=== PATIENT | female | born 1940 | race Caucasian/White ===

== ENCOUNTER 2018-02-28 08:43 | Emergency (ER) | payer MEDICARE, MEDICAID ==
[~2018-02-28] VITALS: Ht 152.4 cm; Wt 128.0 kg
[~2018-02-28 08:43] MED LIST: ALBU18HF2 INH; BUDE10.2 INH; CARV12.5 PO; CEPH500C5 PO; CHOL2000 PO; DOCU-28 PO; FERR325T32 PO; FURO40TA4 PO; GABA-532 PO; HYDR-565 PO; INSU100V5 IJ; LACT1CAP26 PO; LANTUS SUBCUT; LEVO500T2 PO; LOSA1TAB9 PO; NITR0.4T48 SL; PANT-47 PO; POTA8TAB8 PO
[2018-02-28 09:40] LABS: BASOPHILS % (AUTO) 0.1 % (0-1); EOSINOPHILS # (AUTO) 0.4 X10'3 (0-0.9); EOSINOPHILS % (AUTO) 3.8 % (0-6); HEMATOCRIT 30.4 % (35.0-45.0); LYMPHOCYTES # (AUTO) 1.2 X10'3 (1.1-4.8); LYMPHOCYTES % (AUTO) 11.3 % (21-51); MEAN CORPUSCULAR HEMOGLOBIN 29.4 PG (27.0-31.0); MEAN CORPUSCULAR HGB CONC 32.8 % (33.0-36.5); MEAN CORPUSCULAR VOLUME 89.6 FL (78-98); MEAN PLATELET VOLUME 7.7 FL (7.4-10.4); MONOCYTES # (AUTO) 0.6 X10'3 (0-0.9); MONOCYTES % (AUTO) 5.4 % (2-12); NEUTROPHILS # (AUTO) 8.1 X10'3 (1.8-7.7); NEUTROPHILS % (AUTO) 79.4 % (42-75); PLATELET COUNT 147 X10'3 (140-440); RED BLOOD COUNT 3.39 X10'6 (4.20-5.60); RED CELL DISTRIBUTION WIDTH 14.7 % (11.5-14.5); WHITE BLOOD COUNT 10.2 X10'3 (4.5-11.0)
[2018-02-28 10:03] LABS: ALANINE AMINOTRANSFERASE 15 U/L (12-78); ALBUMIN/GLOBULIN RATIO 0.7 (1.1-1.5); ALKALINE PHOSPHATASE 76 IU/L (46-116); ANION GAP 4 (8-16); ASPARTATE AMINO TRANSFERASE 18 U/L (10-37); BILIRUBIN,TOTAL 0.5 MG/DL (0.1-1.0); BLOOD UREA NITROGEN 15 MG/DL (7-18); CALCIUM 9.2 MG/DL (8.5-10.1); CHLORIDE 101 MMOL/L (99-107); GLUCOSE 195 MG/DL (70-104); MAGNESIUM 2.1 MG/DL (1.5-2.4); SODIUM 140 MMOL/L (135-145); TOTAL CARBON DIOXIDE 35.1 MMOL/L (24-32); TOTAL PROTEIN 7.4 G/DL (6.4-8.2); eGFR 54 ML/MIN
[2018-02-28 10:04] LABS: POTASSIUM 4.7 MMOL/L (3.5-5.1)
[2018-02-28] MEDS ORDERED: HYDROcodone/acetaminophen 10/325mg tab PO ONE (12:50)
[2018-02-28 13:29] LABS: C DIFF ANTIGEN NEGATIVE (NEGATIVE); C DIFF SPECIMEN=DIARRHEA? ACCEPTABLE; C DIFFICILE TOXINS A&B NEGATIVE (Neg)
[2018-02-28 14:00] VITALS: BP 170/66
== END 2018-02-28 14:59 | disposition home or self-care (01) ==
LOC: ER 08:43
DX: R19.7 Diarrhea, unspecified (principal); I25.10 Atherosclerotic heart disease of native coronary artery without angina pectoris; I10 Essential (primary) hypertension; I25.2 Old myocardial infarction; E11.9 Type 2 diabetes mellitus without complications; Z90.49 Acquired absence of other specified parts of digestive tract; Z95.1 Presence of aortocoronary bypass graft; Z88.8 Allergy status to other drugs, medicaments and biological substances; Z79.2 Long term (current) use of antibiotics; Z79.4 Long term (current) use of insulin; Z79.899 Other long term (current) drug therapy
CPT/HCPCS: 36415; 80053; 83605; 83735; 84145; 85025; 87040; 87324; 87449; 93005; 99285; J7030

== ENCOUNTER 2018-09-30 19:53 | Emergency (ER) | payer MEDICARE, MEDICAID ==
[~2018-09-30] VITALS: Ht 165.1 cm; Wt 116.0 kg
[~2018-09-30 19:53] MED LIST changes: +HYDR-4353 PO; -HYDR-565 PO
[2018-09-30] MEDS ORDERED: ipratropium/albuterol 3ml nebule NEB ONE (20:05)
[2018-09-30] MEDS ORDERED: HYDROcodone/acetaminophen 10/325mg tab PO ONE (20:05)
[2018-09-30 21:03] VITALS: BP 120/60
--- NOTE | 2018-09-30 21:17 | NUR ---
RT AT BEDSIDE FOR EVAL AND SVN .
[2018-09-30 21:54] LABS: BASOPHILS # (AUTO) 0.1 X10'3 (0-0.2); BASOPHILS % (AUTO) 0.7 % (0-1); EOSINOPHILS # (AUTO) 0.5 X10'3 (0-0.9); EOSINOPHILS % (AUTO) 4.2 % (0-6); HEMATOCRIT 33.8 % (35.0-45.0); LYMPHOCYTES # (AUTO) 1.4 X10'3 (1.1-4.8); LYMPHOCYTES % (AUTO) 11.8 % (21-51); MEAN CORPUSCULAR HEMOGLOBIN 29.2 PG (27.0-31.0); MEAN CORPUSCULAR HGB CONC 32.4 g/dL (33.0-36.5); MEAN CORPUSCULAR VOLUME 89.9 FL (78-98); MEAN PLATELET VOLUME 7.1 FL (7.4-10.4); MONOCYTES # (AUTO) 0.6 X10'3 (0-0.9); NEUTROPHILS # (AUTO) 9.1 X10'3 (1.8-7.7); NEUTROPHILS % (AUTO) 78.3 % (42-75); PLATELET COUNT 166 X10'3 (140-440); RED BLOOD COUNT 3.76 X10'6 (4.20-5.60); RED CELL DISTRIBUTION WIDTH 15.5 % (11.5-14.5); WHITE BLOOD COUNT 11.6 X10'3 (4.5-11.0)
[2018-09-30 22:08] LABS: ALANINE AMINOTRANSFERASE 12 U/L (12-78); ALBUMIN 3.2 G/DL (3.4-5.0); ALBUMIN/GLOBULIN RATIO 0.8 (1.1-1.5); ALKALINE PHOSPHATASE 78 IU/L (46-116); ANION GAP 5 (8-16); ASPARTATE AMINO TRANSFERASE 13 U/L (10-37); BILIRUBIN,TOTAL 0.6 MG/DL (0.1-1.0); BLOOD UREA NITROGEN 16 MG/DL (7-18); BUN/CREATININE RATIO 16.2 (6.6-38.0); CALCIUM 9.2 MG/DL (8.5-10.1); CHLORIDE 101 MMOL/L (99-107); CREATININE 0.99 MG/DL (0.40-0.90); GLUCOSE 151 MG/DL (70-104); POTASSIUM 4.4 MMOL/L (3.5-5.1); SODIUM 141 MMOL/L (135-145); TOTAL CARBON DIOXIDE 35.1 MMOL/L (24-32); TOTAL PROTEIN 7.2 G/DL (6.4-8.2); eGFR 54 ML/MIN
--- NOTE | 2018-09-30 22:34 | NUR ---
patient assisted with 1 person mod assist to wc and then taken to br to void. pt requesting to stay in her wc.
[2018-09-30] MEDS ORDERED: furosemide 10 MG/1 ML 10ml inj IV ONE (22:35)
[2018-09-30] MEDS ORDERED: carVEDilol 3.125mg tablet PO SCH (23:00)
--- NOTE | 2018-09-30 23:39 | NUR ---
PT IS DC READY AND WITH BP OF 211/89. PT DID NOT WANT THE DOSE OF LASIX D/T NEED TO USE BATHROOM AND THE DIFFICULTY HERE IN ER TO GET ASSIST. Willam WYATT AWARE. PT WILL BE PLACED IN ER ROOM 2 FOR O2 NEEDS AND UNTIL SAFE TRANSPORT CAN BE ARRANGED TO HER HOME AND SHE CAN HAVE ELECTRICITY OR A MEANS TO GET HER CONTINUOUS O2.
[2018-10-01] MEDS ORDERED: HYDROcodone/acetaminophen 10/325mg tab PO ONE (03:40)
[2018-10-01] MEDS ORDERED: carVEDilol 3.125mg tablet PO SCH (08:00)
== END 2018-09-30 23:39 | disposition home or self-care (01) ==
LOC: ER 19:54
DX: J44.9 Chronic obstructive pulmonary disease, unspecified (principal); I50.9 Heart failure, unspecified; G89.29 Other chronic pain; I11.0 Hypertensive heart disease with heart failure; I25.119 Atherosclerotic heart disease of native coronary artery with unspecified angina pectoris; I25.2 Old myocardial infarction; M19.90 Unspecified osteoarthritis, unspecified site; E11.9 Type 2 diabetes mellitus without complications; Z86.718 Personal history of other venous thrombosis and embolism; Z90.49 Acquired absence of other specified parts of digestive tract; Z95.1 Presence of aortocoronary bypass graft; Z98.62 Peripheral vascular angioplasty status; Z86.73 Personal history of transient ischemic attack (TIA), and cerebral infarction without residual deficits; Z88.1 Allergy status to other antibiotic agents; Z91.041 Radiographic dye allergy status; Z87.11 Personal history of peptic ulcer disease; Z88.8 Allergy status to other drugs, medicaments and biological substances; Z79.4 Long term (current) use of insulin; Z79.899 Other long term (current) drug therapy
CPT/HCPCS: 36415; 71045; 80053; 83880; 84484; 85025; 93005; 94640; 94760; 99284; J1940

== ENCOUNTER 2019-03-24 11:39 | Inpatient (IN) | payer MEDICARE, MEDICAID ==
[~2019-03-24] VITALS: Ht 165.1 cm; Wt 127.3 kg
[~2019-03-24 11:39] MED LIST changes: -CEPH500C5 PO
[2019-03-24] MEDS ORDERED: normal saline 1000ML IV soln IV ONE (12:35)
[2019-03-24] MEDS ORDERED: CefTRIAXone 2gm/D5W 50ml 50 ML IV ONE (12:55)
[2019-03-24 13:09] LABS: BASOPHILS # (AUTO) 0.1 X10'3 (0-0.2); BASOPHILS % (AUTO) 0.6 % (0-1); EOSINOPHILS # (AUTO) 1.4 X10'3 (0-0.9); EOSINOPHILS % (AUTO) 10.5 % (0-6); HEMATOCRIT 28.7 % (35.0-45.0); HEMOGLOBIN 9.1 g/dl (12.0-16.0); LYMPHOCYTES # (AUTO) 1.2 X10'3 (1.1-4.8); LYMPHOCYTES % (AUTO) 9.6 % (21-51); MEAN CORPUSCULAR HEMOGLOBIN 28.5 PG (27.0-31.0); MEAN CORPUSCULAR HGB CONC 31.8 g/dL (33.0-36.5); MEAN CORPUSCULAR VOLUME 89.6 FL (78-98); MEAN PLATELET VOLUME 7.8 FL (7.4-10.4); MONOCYTES % (AUTO) 7.7 % (2-12); NEUTROPHILS # (AUTO) 9.3 X10'3 (1.8-7.7); NEUTROPHILS % (AUTO) 71.6 % (42-75); PLATELET COUNT 179 X10'3 (140-440); RED BLOOD COUNT 3.21 X10'6 (4.20-5.60); RED CELL DISTRIBUTION WIDTH 14.7 % (11.5-14.5)
[2019-03-24 13:23] LABS: ALANINE AMINOTRANSFERASE 11 U/L (12-78); ALBUMIN 2.8 G/DL (3.4-5.0); ALBUMIN/GLOBULIN RATIO 0.6 (1.1-1.5); ALKALINE PHOSPHATASE 78 IU/L (46-116); ANION GAP 3 (8-16); ASPARTATE AMINO TRANSFERASE 5 U/L (10-37); BILIRUBIN,TOTAL 0.2 MG/DL (0.1-1.0); BLOOD UREA NITROGEN 17 MG/DL (7-18); BUN/CREATININE RATIO 13.1 (6.6-38.0); CALCIUM 8.7 MG/DL (8.5-10.1); CHLORIDE 104 MMOL/L (99-107); GLUCOSE 115 MG/DL (70-104); POTASSIUM 5.7 MMOL/L (3.5-5.1); SODIUM 139 MMOL/L (135-145); TOTAL CARBON DIOXIDE 32.4 MMOL/L (24-32); TOTAL PROTEIN 7.2 G/DL (6.4-8.2); eGFR 40 ML/MIN
--- NOTE | 2019-03-24 13:30 | NUR ---
pt is difficult IV start, attempted twice, another RN to try, pt is resting quietly on gurney, resp even and unlabored, family at bedside
--- NOTE | 2019-03-24 14:01 | NUR ---
another RN attempted IV x2, no success, PICC line
[2019-03-24 14:02] LABS: PARTIAL THROMBOPLASTIN TIME 35 SECONDS (22-32)
[2019-03-24] MEDS ORDERED: insulin regular, human 10 units/0.1 ml syringe IV ONE (14:10)
[2019-03-24] MEDS ORDERED: dextrose 50%-water 50ml dispensing syringe IV ONE (14:10)
--- NOTE | 2019-03-24 14:30 | NUR ---
line placed by PICC nurse to rt bicep ok to use per Dr Duke
--- NOTE | 2019-03-24 14:42 | NUR ---
hospitalist at bedside
[2019-03-24] MEDS ORDERED: ondansetron/PF 4mg/2ml inj IV PRN (14:45)
[2019-03-24] MEDS ORDERED: potassium Cl 20 mEq SR tablet PO PRN ×2 (14:45)
[2019-03-24] MEDS ORDERED: morphine 2 MG/ML inj. syringe IV PRN (14:45)
[2019-03-24] MEDS ORDERED: potassium CL 10mEq/100ml bag 100 ML IV PRN ×2 (14:45)
[2019-03-24] MEDS ORDERED: magnesium hydroxide 30ml (MOM) UD suspension PO PRN (14:45)
[2019-03-24] MEDS ORDERED: mag hydrox/Alum hydrox/simeth 30ml oral suspension PO PRN (14:45)
[2019-03-24] MEDS ORDERED: magnesium Cl slow-release 64mg tablet PO PRN (14:45)
[2019-03-24] MEDS ORDERED: HYDROcodone/acetaminophen 5mg/325mg tablet PO PRN (14:45)
[2019-03-24] MEDS ORDERED: diphenhydrAMINE 50 mg/ml inj IV PRN (14:45)
[2019-03-24] MEDS ORDERED: acetaminophen 325mg tablet PO PRN ×2 (14:45)
[2019-03-24] MEDS ORDERED: diphenhydrAMINE 25mg capsule PO PRN (14:45)
[2019-03-24] MEDS ORDERED: magnesium 2GM in 50ml NS 50 ML IV PRN (14:45)
[2019-03-24] MEDS ORDERED: metoclopramide 5 mg/ml inj IV PRN (14:45)
[2019-03-24] MEDS ORDERED: acetaminophen 650mg rectal suppository RC PRN (14:45)
[2019-03-24] MEDS ORDERED: magnesium 4gm in 100ml NS 100 ML IV PRN (14:45)
[2019-03-24] MEDS ORDERED: bisacodyl 10mg suppository rectal RC PRN (14:45)
[2019-03-24] MEDS ORDERED: FEXO-62 PO (14:58)
[2019-03-24] MEDS ORDERED: LOPE2CAP PO (14:58)
[2019-03-24] MEDS ORDERED: GLIM4TAB PO (14:58)
[2019-03-24] MEDS ORDERED: CELE-85 PO (14:58)
--- NOTE | 2019-03-24 15:00 | NUR ---
pictures taken of rt lower leg, pt continues to rest quietly on gurney
[2019-03-24] MEDS ORDERED: CHOL100046 PO (15:06)
[2019-03-24 15:34] LABS: HEMOGLOBIN A1C 6.7 % (4.5-6.2)
--- NOTE | 2019-03-24 15:49 | NUR ---
2nd liter NS infusing w/o, pt is resting quietly on gurney, resp even and unlabored, waiting for bed assignment
[2019-03-24] MEDS: cefepime 2g/NS 100ml ADVANTAGE 100 ML IV SCH ×2 (15:50→20:00)
--- NOTE | 2019-03-24 17:00 | NUR ---
PT IS SLEEPING, RESP EVEN AND UNLABORED
--- NOTE | 2019-03-24 18:00 | NUR ---
PT RESTING QUIETLY, GAVE HER A WARM BLANKET
[2019-03-24] MEDS: K and/or MAG REPLACEMENT MC SCH (18:15)
[2019-03-24] MEDS: normal saline 1000ml 1,000 ML IV SCH (18:36)
[2019-03-24] MEDS ORDERED: dextrose ORAL solution 15 GM/59 ML bottle PO PRN ×2 (19:25)
[2019-03-24] MEDS ORDERED: nitroGLYCERIN 0.4mg SUBLingual tab SL PRN (19:25)
[2019-03-24] MEDS ORDERED: MESSAGE TO PHARMACY PO ONE (19:25)
[2019-03-24] MEDS ORDERED: glucagon, human recombinant 1mg kit SUBCUT PRN (19:25)
[2019-03-24] MEDS ORDERED: docusate sod 100mg capsule PO PRN (19:25)
[2019-03-24] MEDS ORDERED: dextrose 50%-water 50ml dispensing syringe IV PRN ×2 (19:25)
[2019-03-24] MEDS ORDERED: non-formulary drug (Albuterol Sulfate (Ventolin Hfa) 2 PUFFS) INH PRN (19:25)
[2019-03-24] MEDS ORDERED: albuterol 2.5 MG/3 ML nebule NEB PRN (19:30)
--- NOTE | 2019-03-24 19:49 | NUR ---
PT UP TO BEDSIDE COMMODE WITH MIN ASSIST, UNABLE TO SEND SAMPLE IT WAS CONTAMINATED, PT IS EATING DINNER NOW, DERIAN WELL, NO N/V
[2019-03-24] MEDS ORDERED: non-formulary drug (Budesonide/Formoterol Fumarate (Symbicort 160-4.5 Mcg Inhaler) 1 PUFFS INH SCH (20:00)
[2019-03-24] MEDS: carVEDilol 12.5mg tablet PO SCH (20:09)
[2019-03-24] MEDS: ferrous sulfate 325mg tablet PO SCH (20:10)
[2019-03-24] MEDS: furosemide 40mg tablet PO SCH (20:10)
[2019-03-24] MEDS: pantoprazole 40mg Tablet.DR PO SCH (20:10)
[2019-03-24] MEDS: heparin, porcine 5000 units/ml vial SQ SCH (20:11)
[2019-03-24] MEDS: budesonide 0.5mg/2ml UD nebule IH SCH (20:48)
[2019-03-24] MEDS: insulin glargine (Lantus) pen - multi-dose SQ SCH (21:00)
[2019-03-24] MEDS ORDERED: temazepam 15mg capsule PO PRN (21:00)
--- NOTE | 2019-03-24 22:49 | NUR ---
PT IS SLEEPING, RESP EVEN AND UNLABORED,
[2019-03-24] MEDS ORDERED: sodium polystyrene sulfonate 15gm/60ml oral suspension PO ONE (23:15)
[2019-03-24] MEDS: amLODIPine 5mg tablet PO SCH (23:20)
--- NOTE | 2019-03-24 23:30 | NUR ---
PT UP TO BEDSIDE COMMODE WITH MIN ASSIST, DRESSED WOUND TO RT LOWER LEG WITH NONADHERENT, GUAZE AND GUAZE WRAP, PT DERIAN WELL
[2019-03-25 00:12] LABS: ALBUMIN 2.5 G/DL (3.4-5.0); ANION GAP 2 (8-16); BLOOD UREA NITROGEN 17 MG/DL (7-18); BUN/CREATININE RATIO 12.9 (6.6-38.0); CALCIUM 8.1 MG/DL (8.5-10.1); CHLORIDE 107 MMOL/L (99-107); CREATININE 1.32 MG/DL (0.40-0.90); GLUCOSE 128 MG/DL (70-104); POTASSIUM 5.9 MMOL/L (3.5-5.1); SODIUM 143 MMOL/L (135-145); TOTAL CARBON DIOXIDE 34.5 MMOL/L (24-32); eGFR 39 ML/MIN
[2019-03-25] MEDS: normal saline 1000ml 1,000 ML IV SCH ×3 (00:42→20:04)
[2019-03-25 05:44] LABS: CLARITY,URINE CLEAR (Clear); COLOR,URINE STRAW (Yellow); GLUCOSE, URINE NEGATIVE (Neg); KETONES,URINE NEGATIVE (Neg); LEUKOCYTE ESTERASE ,URINE NEGATIVE (Neg); NITRITES, URINE NEGATIVE (Neg); OCCULT BLOOD,URINE NEGATIVE (Neg); PH,URINE 5.5 (4.8-8.0); PROTEIN,URINE NEGATIVE (Neg); UROBILINOGEN,URINE 0.2 E.U/dL (0.2-1.0)
[2019-03-25 05:45] LABS: UA COLLECTION TYPE OTHER
[2019-03-25] MEDS: morphine 2 MG/ML inj. syringe IV PRN ×2 (06:14→16:20)
[2019-03-25 06:39] LABS: BASOPHILS # (AUTO) 0.1 X10'3 (0-0.2); BASOPHILS % (AUTO) 0.6 % (0-1); EOSINOPHILS % (AUTO) 9.8 % (0-6); HEMATOCRIT 28.1 % (35.0-45.0); LYMPHOCYTES # (AUTO) 0.9 X10'3 (1.1-4.8); LYMPHOCYTES % (AUTO) 8.6 % (21-51); MEAN CORPUSCULAR HGB CONC 32.1 g/dL (33.0-36.5); MEAN CORPUSCULAR VOLUME 90.2 FL (78-98); MEAN PLATELET VOLUME 7.7 FL (7.4-10.4); MONOCYTES # (AUTO) 0.8 X10'3 (0-0.9); MONOCYTES % (AUTO) 7.7 % (2-12); NEUTROPHILS # (AUTO) 7.4 X10'3 (1.8-7.7); NEUTROPHILS % (AUTO) 73.3 % (42-75); PLATELET COUNT 150 X10'3 (140-440); RED BLOOD COUNT 3.12 X10'6 (4.20-5.60); RED CELL DISTRIBUTION WIDTH 14.8 % (11.5-14.5); WHITE BLOOD COUNT 10.1 X10'3 (4.5-11.0)
[2019-03-25] MEDS: albuterol 2.5 MG/3 ML nebule NEB SCH ×4 (06:49→19:20)
[2019-03-25] MEDS: budesonide 0.5mg/2ml UD nebule IH SCH ×2 (06:49→19:20)
[2019-03-25 07:16] LABS: ALANINE AMINOTRANSFERASE 10 U/L (12-78); ALBUMIN 2.5 G/DL (3.4-5.0); ALBUMIN/GLOBULIN RATIO 0.7 (1.1-1.5); ALKALINE PHOSPHATASE 61 IU/L (46-116); ANION GAP 2 (8-16); ASPARTATE AMINO TRANSFERASE 9 U/L (10-37); BILIRUBIN,TOTAL 0.3 MG/DL (0.1-1.0); BLOOD UREA NITROGEN 15 MG/DL (7-18); CALCIUM 8.1 MG/DL (8.5-10.1); CHLORIDE 107 MMOL/L (99-107); CHOL/HDL RATIO 3.4 (0.00-4.99); CHOLESTEROL 118 MG/DL (0-200); CREATININE 1.25 MG/DL (0.40-0.90); GLUCOSE 129 MG/DL (70-104); HDL CHOLESTEROL 35 MG/DL (35-60); LDL CHOLESTEROL 70 MG/DL (50-100); MAGNESIUM 1.9 MG/DL (1.5-2.4); PHOSPHORUS 3.2 MG/DL (2.3-4.5); POTASSIUM 5.2 MMOL/L (3.5-5.1); SODIUM 143 MMOL/L (135-145); TOTAL PROTEIN 6.3 G/DL (6.4-8.2); TRIGLYCERIDES 99 MG/DL (20-135); eGFR 42 ML/MIN
[2019-03-25] MEDS: HYDROcodone/acetaminophen 10/325mg tab PO PRN ×2 (07:17→22:07)
--- NOTE | 2019-03-25 07:35 | NUR ---
Patient arrived to unit
[2019-03-25] MEDS ORDERED: LOSARTAN PO SCH (08:00)
[2019-03-25] MEDS ORDERED: vitamin D (cholecalciferol) 1,000 unit tablet PO SCH (08:00)
[2019-03-25] MEDS ORDERED: FEXOFENADINE HCL PO SCH (08:00)
[2019-03-25] MEDS: K and/or MAG REPLACEMENT MC SCH (08:00)
[2019-03-25] MEDS ORDERED: HYDROCHLOROTHIAZIDE PO SCH (08:00)
[2019-03-25] MEDS: pantoprazole 40mg Tablet.DR PO SCH ×2 (08:17→20:04)
[2019-03-25] MEDS: loratadine 10mg tablet PO SCH (08:17)
[2019-03-25] MEDS: amLODIPine 5mg tablet PO SCH (08:17)
[2019-03-25] MEDS: HYDROchlorothiazide 12.5mg capsule PO SCH (08:17)
[2019-03-25] MEDS: ferrous sulfate 325mg tablet PO SCH ×2 (08:17→20:04)
[2019-03-25] MEDS: gabapentin 300mg capsule PO SCH ×4 (08:17→23:24)
[2019-03-25] MEDS: carVEDilol 12.5mg tablet PO SCH ×2 (08:17→20:04)
[2019-03-25] MEDS: heparin, porcine 5000 units/ml vial SQ SCH ×2 (08:18→20:05)
[2019-03-25] MEDS: furosemide 40mg tablet PO SCH ×2 (08:18→20:04)
[2019-03-25] MEDS: losartan 50mg tablet PO SCH (08:19)
[2019-03-25] MEDS: cefepime 2g/NS 100ml ADVANTAGE 100 ML IV SCH ×2 (08:20→20:04)
[2019-03-25] MEDS: vitamin D (cholecalciferol) 1,000 unit tablet PO SCH (08:39)
--- NOTE | 2019-03-25 09:42 | NUR ---
DM consult: Patient's A1c is 6.7; No DM education warranted at this time. Will continue to follow. Addendum: 03/25/19 at [address] Amended: Links added.
[2019-03-25 11:00] VITALS: BP 152/47
--- NOTE | 2019-03-25 11:25 | NUR ---
COMPRESSION WRAP EDUCATION PROVIDED BY WOUND CARE 1. Patient instructed to elevate legs at least 30 minutes 3 times a day or 10 minutes every 4 hours. 2. Patient Instructed to check for the following signs: * Toes become purplish or blue in color. * Toes become cool to the touch, numb or tingly. * Dressing becomes loose, wrinkled or falls down. * If any pain or discomfort occurs under their dressing. * If any of these signs occur, use a pair of scissors and carefully cut off the dressing. "Call your wound care center or primary doctor immediately to make an appointment. 3. Patient instructed that the wrap needs to be kept dry. They may bath at a sink or shower with a plastic bag taped over the wrap. If they shower, be sure to have another person available for assistance or placing towels on the floor of the shower or tub to eliminate the slick surface can reduce the risk of falls. 4. If any of these occur while patient is still in the hospital, call the nurse immediately. Addendum: 03/25/19 at 1126 by Jean Carlos Sparks RN Amended: Links added.
[2019-03-25 18:00] VITALS: BP 140/63
[2019-03-25] MEDS: lactobacillus rhamnosus 10,000 MMU CELLS/CAPSULE PO SCH (20:04)
[2019-03-25] MEDS ORDERED: sodium polystyrene sulfonate 15gm/60ml oral suspension PO ONE (20:35)
[2019-03-25] MEDS: insulin glargine (Lantus) pen - multi-dose SQ SCH (21:00)
--- NOTE | 2019-03-25 22:29 | NUR ---
Patient in room EDD 346. I have received report from LNIH David and had the opportunity to ask questions and assume patient care. Addendum: 03/25/19 at 2229 by Carito Ray RN Amended: Links added.
[2019-03-26] VITALS (7 sets, daily range): BP systolic 131–232; BP diastolic 51–89
[2019-03-26 05:08] LABS: BASOPHILS % (AUTO) 0.4 % (0-1); EOSINOPHILS # (AUTO) 0.9 X10'3 (0-0.9); EOSINOPHILS % (AUTO) 9.1 % (0-6); HEMATOCRIT 28.1 % (35.0-45.0); LYMPHOCYTES # (AUTO) 0.9 X10'3 (1.1-4.8); LYMPHOCYTES % (AUTO) 9.3 % (21-51); MEAN CORPUSCULAR HEMOGLOBIN 28.9 PG (27.0-31.0); MEAN CORPUSCULAR HGB CONC 32.1 g/dL (33.0-36.5); MEAN CORPUSCULAR VOLUME 90.1 FL (78-98); MEAN PLATELET VOLUME 8.1 FL (7.4-10.4); MONOCYTES # (AUTO) 0.8 X10'3 (0-0.9); MONOCYTES % (AUTO) 7.9 % (2-12); NEUTROPHILS # (AUTO) 7.5 X10'3 (1.8-7.7); NEUTROPHILS % (AUTO) 73.3 % (42-75); PLATELET COUNT 127 X10'3 (140-440); RED BLOOD COUNT 3.11 X10'6 (4.20-5.60); RED CELL DISTRIBUTION WIDTH 14.7 % (11.5-14.5); WHITE BLOOD COUNT 10.2 X10'3 (4.5-11.0)
[2019-03-26 05:32] LABS: POTASSIUM 4.5 MMOL/L (3.5-5.1); SODIUM 142 MMOL/L (135-145)
[2019-03-26 05:50] LABS: ALANINE AMINOTRANSFERASE 9 U/L (12-78); ALBUMIN 2.3 G/DL (3.4-5.0); ALBUMIN/GLOBULIN RATIO 0.6 (1.1-1.5); ALKALINE PHOSPHATASE 59 IU/L (46-116); ANION GAP 5 (8-16); ASPARTATE AMINO TRANSFERASE 5 U/L (10-37); BILIRUBIN,TOTAL 0.4 MG/DL (0.1-1.0); BLOOD UREA NITROGEN 13 MG/DL (7-18); BUN/CREATININE RATIO 11.8 (6.6-38.0); CALCIUM 8.5 MG/DL (8.5-10.1); CHLORIDE 104 MMOL/L (99-107); GLUCOSE 155 MG/DL (70-104); MAGNESIUM 1.9 MG/DL (1.5-2.4); PHOSPHORUS 2.6 MG/DL (2.3-4.5); TOTAL PROTEIN 6.3 G/DL (6.4-8.2); eGFR 48 ML/MIN
--- NOTE | 2019-03-26 06:00 | NUR ---
Patient in room EDD 346. I have received report from LINH Arzate and had the opportunity to ask questions and assume patient care.
--- NOTE | 2019-03-26 06:29 | NUR ---
Problems reprioritized. Patient report given, questions answered & plan of care reviewed with LINH Winters. Addendum: 03/26/19 at 0630 by Carito Ray RN Amended: Links added.
--- NOTE | 2019-03-26 07:35 | NUR ---
Jewell, nurses aid came out and said that patient was saturating in the 60's and her HR was in the 130's. I went and looked at the patient and she was alert and looking at me. She was put on a non-rebreather mask and her saturations came up to 97%. She was complaining of chest pain so the aids were working on an EKG. She said that it was across her entire chest. She did not state that there was any pressure or that it was radiating down her arm. The patient was also short of breath. I went to notify chargemaster analyst Megan and we agreed that we should call a rapid response. ICU charge nurse Jennifer came and RT showed up as well. We got a set of vitals at 0745 and BP was 232/89 HR of 114, saturations were still good. Break nurse Jennifer went and took the EKG to an ER doctor to be read. Jennifer suggested nitro so I double checked the chart and she had a PRN dose. Sublingual nitro was given. Dr. Taylor was paged while the first EKG was being drawn. RT was getting ABG's and Jennifer suggested an add on troponin as well. Dr. Taylor called and we discussed everything that had happened. He ordered 2 more troponin's Q6h's, heparin drip if the troponin was positive, and possibly Bipap if the ABG's didn't look good. LINH Rodriguez and RT Latha waited for the ABG's to come back and her CO2 was high and so they suggested to put her back on the MC at 2L and take her off the non-rebreather and she should naturally blow off the CO2. The patient's saturations came up and LINH Rodriguez and Latha, RT told me to call them if I needed them. The patients vitals were re-checked at 0805, BP of 190/67 HR of 131. I then decided to give the patient her morning medications because she had a couple BP medications that would help her still elevated pressure. Will continue to monitor the patient.
[2019-03-26] MEDS: budesonide 0.5mg/2ml UD nebule IH SCH ×2 (07:47→20:28)
[2019-03-26] MEDS: albuterol 2.5 MG/3 ML nebule NEB SCH ×4 (07:47→20:27)
[2019-03-26 08:00] LABS: ABG BASE EXCESS 9.1 mmol/L (-2.0-3.0); ABG HCO3 37.6 mmol/L (22.0-26.0); ABG OXYGEN SATURATION 98.9 % (95-98); ABG PCO2 (T) 76.6 mmHg (35.0-45.0); ABG PH (T) 7.309 (7.350-7.450); ABG PO2 (T) 164.4 mmHg (83-108); ALLEN'S TEST Positive; FCOHb 0.5 % (0.5-1.5); FLOW 15 L/min; FMetHb 0.1 % (0.3-1.12); FO2Hb 98.3 % (94-100); TOTAL HEMOGLOBIN 10.8 G/dl (12.0-16.0)
[2019-03-26] MEDS: K and/or MAG REPLACEMENT MC SCH (08:00)
[2019-03-26 08:19] LABS: TROPONIN I < 0.04 NG/ML (0.0-0.05)
[2019-03-26] MEDS: losartan 50mg tablet PO SCH (08:26)
[2019-03-26] MEDS: carVEDilol 12.5mg tablet PO SCH ×2 (08:26→19:18)
[2019-03-26] MEDS: loratadine 10mg tablet PO SCH (08:26)
[2019-03-26] MEDS: cefepime inj 2 GM in dextrose 5%-water 50ml 50 ML IV SCH ×2 (08:26→19:57)
[2019-03-26] MEDS: HYDROchlorothiazide 12.5mg capsule PO SCH (08:27)
[2019-03-26] MEDS: lactobacillus rhamnosus 10,000 MMU CELLS/CAPSULE PO SCH ×2 (08:27→19:18)
[2019-03-26] MEDS: gabapentin 300mg capsule PO SCH ×3 (08:27→23:19)
[2019-03-26] MEDS: ferrous sulfate 325mg tablet PO SCH ×2 (08:27→19:18)
[2019-03-26] MEDS: amLODIPine 5mg tablet PO SCH (08:27)
[2019-03-26] MEDS: furosemide 40mg tablet PO SCH (08:27)
[2019-03-26] MEDS: vitamin D (cholecalciferol) 1,000 unit tablet PO SCH (08:28)
[2019-03-26] MEDS: pantoprazole 40mg Tablet.DR PO SCH ×2 (08:28→19:18)
[2019-03-26] MEDS: heparin, porcine 5000 units/ml vial SQ SCH ×2 (08:29→19:19)
[2019-03-26] MEDS ORDERED: diltiazem 30mg tablet PO ONE (09:40)
--- NOTE | 2019-03-26 12:00 | NUR ---
1200 blood sugar was not checked, patient already eating. Confusion between myself and the break nurse. Will check at 1700.
[2019-03-26] MEDS: HYDROcodone/acetaminophen 10/325mg tab PO PRN (14:13)
--- NOTE | 2019-03-26 18:00 | NUR ---
Problems reprioritized. Patient report given, questions answered & plan of care reviewed with LINH Hand.
--- NOTE | 2019-03-26 18:30 | NUR ---
Patient in room EDD 346. I have received report from Vianey MELTON and had the opportunity to ask questions and assume patient care.
[2019-03-26] MEDS: insulin Lispro (HumaLOG) vial - multi-dose SQ SCH (19:12)
[2019-03-26] MEDS: furosemide 40mg/4ml inj IV SCH (19:18)
[2019-03-26] MEDS: insulin glargine (Lantus) pen - multi-dose SQ SCH (21:06)
[2019-03-26] MEDS: ipratropium/albuterol 3ml nebule NEB SCH (23:22)
[2019-03-27] MEDS: HYDROcodone/acetaminophen 10/325mg tab PO PRN ×2 (02:18→22:45)
[2019-03-27] MEDS: ipratropium/albuterol 3ml nebule NEB SCH ×6 (03:15→23:23)
[2019-03-27 05:29] LABS: ALANINE AMINOTRANSFERASE 12 U/L (12-78); ALBUMIN 2.2 G/DL (3.4-5.0); ALBUMIN/GLOBULIN RATIO 0.6 (1.1-1.5); ALKALINE PHOSPHATASE 59 IU/L (46-116); ANION GAP 3 (8-16); ASPARTATE AMINO TRANSFERASE 4 U/L (10-37); BILIRUBIN,TOTAL 0.4 MG/DL (0.1-1.0); BLOOD UREA NITROGEN 14 MG/DL (7-18); CALCIUM 8.4 MG/DL (8.5-10.1); CHLORIDE 100 MMOL/L (99-107); GLUCOSE 154 MG/DL (70-104); MAGNESIUM 1.5 MG/DL (1.5-2.4); PHOSPHORUS 2.2 MG/DL (2.3-4.5); POTASSIUM 3.8 MMOL/L (3.5-5.1); SODIUM 142 MMOL/L (135-145); TOTAL CARBON DIOXIDE 38.9 MMOL/L (24-32); TOTAL PROTEIN 6.1 G/DL (6.4-8.2); eGFR 54 ML/MIN
[2019-03-27 07:00] VITALS: BP 136/52
--- NOTE | 2019-03-27 07:02 | NUR ---
Problems reprioritized. Patient report given, questions answered & plan of care reviewed with Awa MELTON.
[2019-03-27 07:14] LABS: BASOPHILS # (AUTO) 0.1 X10'3 (0-0.2); BASOPHILS % (AUTO) 0.5 % (0-1); EOSINOPHILS # (AUTO) 0.7 X10'3 (0-0.9); EOSINOPHILS % (AUTO) 6.9 % (0-6); HEMATOCRIT 26.3 % (35.0-45.0); HEMOGLOBIN 8.5 g/dl (12.0-16.0); LYMPHOCYTES # (AUTO) 0.9 X10'3 (1.1-4.8); LYMPHOCYTES % (AUTO) 8.5 % (21-51); MEAN CORPUSCULAR HGB CONC 32.3 g/dL (33.0-36.5); MEAN CORPUSCULAR VOLUME 89.6 FL (78-98); MEAN PLATELET VOLUME 7.6 FL (7.4-10.4); MONOCYTES # (AUTO) 1.1 X10'3 (0-0.9); MONOCYTES % (AUTO) 10.2 % (2-12); NEUTROPHILS % (AUTO) 73.9 % (42-75); PLATELET COUNT 143 X10'3 (140-440); RED BLOOD COUNT 2.93 X10'6 (4.20-5.60); RED CELL DISTRIBUTION WIDTH 15.1 % (11.5-14.5); WHITE BLOOD COUNT 10.8 X10'3 (4.5-11.0)
[2019-03-27] MEDS: loratadine 10mg tablet PO SCH (07:27)
[2019-03-27] MEDS: vitamin D (cholecalciferol) 1,000 unit tablet PO SCH (07:27)
[2019-03-27] MEDS: lactobacillus rhamnosus 10,000 MMU CELLS/CAPSULE PO SCH ×2 (07:27→20:16)
[2019-03-27] MEDS: gabapentin 300mg capsule PO SCH ×3 (07:27→23:31)
[2019-03-27] MEDS: pantoprazole 40mg Tablet.DR PO SCH ×2 (07:28→20:16)
[2019-03-27] MEDS: carVEDilol 12.5mg tablet PO SCH ×2 (07:28→20:16)
[2019-03-27] MEDS: losartan 50mg tablet PO SCH (07:28)
[2019-03-27] MEDS: HYDROchlorothiazide 12.5mg capsule PO SCH (07:28)
[2019-03-27] MEDS: ferrous sulfate 325mg tablet PO SCH ×2 (07:28→20:16)
[2019-03-27] MEDS: amLODIPine 5mg tablet PO SCH (07:30)
[2019-03-27] MEDS: cefepime inj 2 GM in dextrose 5%-water 50ml 50 ML IV SCH ×2 (07:33→20:16)
[2019-03-27] MEDS: furosemide 40mg/4ml inj IV SCH ×2 (07:34→20:16)
[2019-03-27] MEDS: heparin, porcine 5000 units/ml vial SQ SCH ×2 (07:37→20:16)
[2019-03-27] MEDS: K and/or MAG REPLACEMENT MC SCH (08:00)
[2019-03-27] MEDS: insulin Lispro (HumaLOG) vial - multi-dose SQ SCH ×3 (08:26→18:53)
[2019-03-27 11:00] VITALS: BP 109/38
[2019-03-27] MEDS: budesonide 0.5mg/2ml UD nebule IH SCH ×2 (11:13→20:01)
--- NOTE | 2019-03-27 11:30 | NUR ---
Called tele monitoring box. Pt.'s hr in 70s
[2019-03-27 12:57] VITALS: BP 109/37
[2019-03-27] MEDS ORDERED: VANCOMYCIN LEVEL IV ONE (15:30)
[2019-03-27 18:00] VITALS: BP 146/54
--- NOTE | 2019-03-27 18:30 | NUR ---
Patient in room EDD 346. I have received report from Awa MELTON and had the opportunity to ask questions and assume patient care.
--- NOTE | 2019-03-27 19:02 | NUR ---
REPORT GIVEN TO CINDA MELTON.
[2019-03-27] MEDS: normal saline 1000ml 1,000 ML IV SCH (20:42)
[2019-03-27] MEDS: insulin glargine (Lantus) pen - multi-dose SQ SCH (21:10)
[2019-03-28] VITALS: BP 135/45
[2019-03-28] MEDS: morphine 2 MG/ML inj. syringe IV PRN (00:35)
[2019-03-28] MEDS: ipratropium/albuterol 3ml nebule NEB SCH ×6 (03:01→23:53)
[2019-03-28] MEDS ORDERED: VANCOMYCIN LEVEL IV ONE (03:30)
[2019-03-28 04:55] LABS: BASOPHILS # (AUTO) 0.1 X10'3 (0-0.2); BASOPHILS % (AUTO) 0.9 % (0-1); EOSINOPHILS # (AUTO) 1.1 X10'3 (0-0.9); EOSINOPHILS % (AUTO) 9.2 % (0-6); HEMATOCRIT 26.6 % (35.0-45.0); HEMOGLOBIN 8.5 g/dl (12.0-16.0); LYMPHOCYTES # (AUTO) 1.3 X10'3 (1.1-4.8); LYMPHOCYTES % (AUTO) 11.6 % (21-51); MEAN CORPUSCULAR HEMOGLOBIN 28.6 PG (27.0-31.0); MEAN CORPUSCULAR HGB CONC 31.9 g/dL (33.0-36.5); MEAN CORPUSCULAR VOLUME 89.5 FL (78-98); MEAN PLATELET VOLUME 7.6 FL (7.4-10.4); MONOCYTES % (AUTO) 9.1 % (2-12); NEUTROPHILS # (AUTO) 7.9 X10'3 (1.8-7.7); NEUTROPHILS % (AUTO) 69.2 % (42-75); PLATELET COUNT 150 X10'3 (140-440); RED BLOOD COUNT 2.97 X10'6 (4.20-5.60); RED CELL DISTRIBUTION WIDTH 14.9 % (11.5-14.5); WHITE BLOOD COUNT 11.4 X10'3 (4.5-11.0)
[2019-03-28 05:11] LABS: ALANINE AMINOTRANSFERASE 9 U/L (12-78); ALBUMIN 2.3 G/DL (3.4-5.0); ALBUMIN/GLOBULIN RATIO 0.6 (1.1-1.5); ALKALINE PHOSPHATASE 52 IU/L (46-116); ANION GAP 0 (8-16); ASPARTATE AMINO TRANSFERASE 5 U/L (10-37); BILIRUBIN,TOTAL 0.5 MG/DL (0.1-1.0); BLOOD UREA NITROGEN 18 MG/DL (7-18); BUN/CREATININE RATIO 18.6 (6.6-38.0); CALCIUM 8.3 MG/DL (8.5-10.1); CHLORIDE 99 MMOL/L (99-107); CREATININE 0.97 MG/DL (0.40-0.90); GLUCOSE 146 MG/DL (70-104); MAGNESIUM 1.5 MG/DL (1.5-2.4); PHOSPHORUS 2.3 MG/DL (2.3-4.5); POTASSIUM 3.7 MMOL/L (3.5-5.1); SODIUM 142 MMOL/L (135-145); TOTAL PROTEIN 6.3 G/DL (6.4-8.2); eGFR 56 ML/MIN
[2019-03-28 05:14] LABS: TOTAL CARBON DIOXIDE 43.1 MMOL/L (24-32); VANCOMYCIN,TROUGH 26.4 UG/ML (6.0-14.0)
--- NOTE | 2019-03-28 05:20 | NUR ---
0400 vanco dose held per pharmacy. Critical vanco trough
[2019-03-28 07:00] VITALS: BP 154/46
--- NOTE | 2019-03-28 07:00 | NUR ---
Problems reprioritized. Patient report given, questions answered & plan of care reviewed with Awa roper.
[2019-03-28] MEDS: budesonide 0.5mg/2ml UD nebule IH SCH ×2 (07:05→19:49)
[2019-03-28] MEDS: K and/or MAG REPLACEMENT MC SCH (08:00)
[2019-03-28] MEDS: cefepime inj 2 GM in dextrose 5%-water 50ml 50 ML IV SCH ×2 (09:23→21:37)
[2019-03-28] MEDS: amLODIPine 5mg tablet PO SCH (09:23)
[2019-03-28] MEDS: vitamin D (cholecalciferol) 1,000 unit tablet PO SCH (09:23)
[2019-03-28] MEDS: pantoprazole 40mg Tablet.DR PO SCH ×2 (09:24→21:40)
[2019-03-28] MEDS: lactobacillus rhamnosus 10,000 MMU CELLS/CAPSULE PO SCH ×2 (09:24→21:40)
[2019-03-28] MEDS: HYDROcodone/acetaminophen 10/325mg tab PO PRN ×3 (09:24→21:40)
[2019-03-28] MEDS: gabapentin 300mg capsule PO SCH ×2 (09:25→16:50)
[2019-03-28] MEDS: HYDROchlorothiazide 12.5mg capsule PO SCH (09:25)
[2019-03-28] MEDS: carVEDilol 12.5mg tablet PO SCH ×2 (09:25→21:39)
[2019-03-28] MEDS: loratadine 10mg tablet PO SCH (09:25)
[2019-03-28] MEDS: losartan 50mg tablet PO SCH (09:26)
[2019-03-28] MEDS: furosemide 40mg/4ml inj IV SCH ×2 (09:26→21:39)
[2019-03-28] MEDS: ferrous sulfate 325mg tablet PO SCH ×2 (09:26→21:55)
[2019-03-28] MEDS: heparin, porcine 5000 units/ml vial SQ SCH ×2 (09:27→21:38)
[2019-03-28] MEDS: insulin Lispro (HumaLOG) vial - multi-dose SQ SCH ×3 (09:32→19:14)
[2019-03-28 11:00] VITALS: BP 140/48
--- NOTE | 2019-03-28 12:17 | NUR ---
PAGER ID: [phone] MESSAGE: [phone] Melvi Espinosa Pt. wound care orders state daily and every shift. Please call me so I can clarify orders. Awa [phone]
--- NOTE | 2019-03-28 14:23 | NUR ---
Clarified wound care orders with MD Taylor. Richard. changes are mandatory DAILY. Pt. is also to be on strict I & O s with daily weights.
--- NOTE | 2019-03-28 14:28 | NUR ---
PAGER ID: [phone] MESSAGE: Melvi Jacques 346A Pt. starting to take a nap. paged respiratory for cpap. Respiratory wants a blood gas level and states pt. has been refusing to wear cpap. ania [phone]
--- NOTE | 2019-03-28 16:27 | NUR ---
PAGER ID: [phone] MESSAGE: Spoke to RT about Melvi Jacques. Have new information on pt. Please call surgical.
--- NOTE | 2019-03-28 16:27 | NUR ---
MD CADENA WANTED PT. TO WEAR CPAP WHILE SLEEPING. SPOKE TO RT. RT STATES SHE HAS TRIED TO USE CPAP WITH PT. BEFORE AND PT. HAD REFUSED. SPOKE TO PT. SHE STATES SHE WOULD BE WILLING TO TRY. RT STATES VENOUS C02 IS NOT AN INDICATOR TO ORDER CPAP. NEEDS BLOOD GAS LEVELS. ALSO IF PT. IS TO WEAR CPAP AT NIGHT SHE WILL EITHER NEED A SLEEP STUDY, OR MD CADENA WILL NEED TO ORDER SPECIFIC PRESSURES, 02 LEVELS, AND SAT GOALS. IF PT NEEDS CPAP/BPAP TO CORRECT BLOOD GAS LEVELS SHE WILL NEED TO BE TRANSFERRED TO ANOTHER UNIT. PAGED TWICE ABOUT THIS ISSUE. AWAITING RESPONSE AND ADVICE.
[2019-03-28] MEDS: vancomycin/NS 1 GM ADD-VANTAGE 250 ML IV SCH (16:51)
--- NOTE | 2019-03-28 19:15 | NUR ---
PT. SITTING UP IN HER WHEELCHAIR. 02 ON AND PT. COMFORTABLE AWAKE AND ALERT. GAVE REPORT TO MARILYNN MELTON.
[2019-03-28 20:00] VITALS: BP 127/63
[2019-03-28] MEDS: insulin glargine (Lantus) pen - multi-dose SQ SCH (21:55)
--- NOTE | 2019-03-28 23:40 | NUR ---
Nurse and RT went to talk to patient. Patient does not want to try the Cpap. States she had it before and she did not like it. She is claustrophobic. Patient states if she really has to wear it later she will give it a try, but she cant say she will wear it. Patient continues with breathing tx. and Oxygen at 2L nasal cannula. Will continue with care.
[2019-03-29] VITALS: BP 137/48
[2019-03-29] MEDS: gabapentin 300mg capsule PO SCH ×2 (00:05→07:36)
[2019-03-29] MEDS: ipratropium/albuterol 3ml nebule NEB SCH ×3 (03:40→11:27)
[2019-03-29] MEDS: vancomycin/NS 1 GM ADD-VANTAGE 250 ML IV SCH (05:08)
[2019-03-29 05:42] LABS: BASOPHILS # (AUTO) 0.1 X10'3 (0-0.2); BASOPHILS % (AUTO) 0.6 % (0-1); EOSINOPHILS # (AUTO) 1.2 X10'3 (0-0.9); EOSINOPHILS % (AUTO) 9.6 % (0-6); HEMATOCRIT 27.6 % (35.0-45.0); HEMOGLOBIN 8.9 g/dl (12.0-16.0); LYMPHOCYTES # (AUTO) 1.1 X10'3 (1.1-4.8); LYMPHOCYTES % (AUTO) 9.3 % (21-51); MEAN CORPUSCULAR HEMOGLOBIN 28.8 PG (27.0-31.0); MEAN CORPUSCULAR HGB CONC 32.2 g/dL (33.0-36.5); MEAN CORPUSCULAR VOLUME 89.4 FL (78-98); MEAN PLATELET VOLUME 7.8 FL (7.4-10.4); MONOCYTES % (AUTO) 8.1 % (2-12); NEUTROPHILS # (AUTO) 8.7 X10'3 (1.8-7.7); NEUTROPHILS % (AUTO) 72.4 % (42-75); PLATELET COUNT 169 X10'3 (140-440); RED BLOOD COUNT 3.09 X10'6 (4.20-5.60); RED CELL DISTRIBUTION WIDTH 14.9 % (11.5-14.5)
[2019-03-29 05:47] LABS: ALANINE AMINOTRANSFERASE 11 U/L (12-78); ALBUMIN 2.4 G/DL (3.4-5.0); ALBUMIN/GLOBULIN RATIO 0.6 (1.1-1.5); ALKALINE PHOSPHATASE 56 IU/L (46-116); ANION GAP 5 (8-16); ASPARTATE AMINO TRANSFERASE 4 U/L (10-37); BILIRUBIN,TOTAL 0.4 MG/DL (0.1-1.0); BLOOD UREA NITROGEN 25 MG/DL (7-18); BUN/CREATININE RATIO 21.9 (6.6-38.0); CALCIUM 8.8 MG/DL (8.5-10.1); CHLORIDE 97 MMOL/L (99-107); CREATININE 1.14 MG/DL (0.40-0.90); GLUCOSE 150 MG/DL (70-104); MAGNESIUM 1.6 MG/DL (1.5-2.4); SODIUM 141 MMOL/L (135-145); TOTAL CARBON DIOXIDE 38.6 MMOL/L (24-32); TOTAL PROTEIN 6.6 G/DL (6.4-8.2); eGFR 46 ML/MIN
--- NOTE | 2019-03-29 06:11 | NUR ---
Problems reprioritized. Patient report given, questions answered & plan of care reviewed with ania MELTON.
[2019-03-29] MEDS: HYDROchlorothiazide 12.5mg capsule PO SCH (07:36)
[2019-03-29] MEDS: amLODIPine 5mg tablet PO SCH (07:36)
[2019-03-29] MEDS: vitamin D (cholecalciferol) 1,000 unit tablet PO SCH (07:36)
[2019-03-29] MEDS: lactobacillus rhamnosus 10,000 MMU CELLS/CAPSULE PO SCH (07:36)
[2019-03-29] MEDS: carVEDilol 12.5mg tablet PO SCH (07:36)
[2019-03-29] MEDS: losartan 50mg tablet PO SCH (07:36)
[2019-03-29] MEDS: ferrous sulfate 325mg tablet PO SCH (07:36)
[2019-03-29] MEDS: pantoprazole 40mg Tablet.DR PO SCH (07:36)
[2019-03-29] MEDS: loratadine 10mg tablet PO SCH (07:36)
[2019-03-29] MEDS: heparin, porcine 5000 units/ml vial SQ SCH (07:37)
[2019-03-29] MEDS: furosemide 40mg/4ml inj IV SCH (07:37)
[2019-03-29] MEDS: HYDROcodone/acetaminophen 10/325mg tab PO PRN (07:38)
[2019-03-29] MEDS: budesonide 0.5mg/2ml UD nebule IH SCH (07:43)
[2019-03-29 08:00] VITALS: BP 119/50
[2019-03-29] MEDS: cefepime inj 2 GM in dextrose 5%-water 50ml 50 ML IV SCH (08:20)
[2019-03-29] MEDS: insulin Lispro (HumaLOG) vial - multi-dose SQ SCH ×2 (10:13→13:30)
[2019-03-29 12:00] VITALS: BP 93/33
[2019-03-29 12:05] VITALS: BP 105/46
--- NOTE | 2019-03-29 12:10 | NUR ---
FOLDING RULES PRINTING MACHINE OPERATOR came to this nurse with poor vitals for pt. SA02 84 on 2L of 02, and BP 93/33- taken with an automatic machine. Retook BP manually. 105/46. 02 increased to 4LPM. Pt. SA02 at 90-93%. made aware of increase oxygen needs by charge nurse Mignon.
--- NOTE | 2019-03-29 14:10 | NUR ---
PAGER ID: [phone] MESSAGE: Melvi Jacques care a van here to pick pt. up, but orders are not clear on transfer packet. please call to clarify. ania [phone]
--- NOTE | 2019-03-29 14:22 | NUR ---
Orders clarified. Pt's transfer packet complete. IV DC'd, pressure bandage applied, no s/sx bleeding noted. Report called to Leobardo August. Spoke to Shreya DEL CID. She is aware pt. is on Linezoid 600 mg BID for 10 days. ID wristband removed. Care a van here to curing pickling packer pt. early and had to wait while order were verified. Pt. left in w/c with 02 on and with care a van staff member.
[2019-03-30] MEDS ORDERED: VANCOMYCIN LEVEL IV ONE (03:30)
== END 2019-03-29 14:22 | DRG 602 ==
LOC: ER 11:40 → SUR 3N 03-25 07:55
PROVIDERS: ADMIT Family Medicine; ATTEND Family Medicine
PROC: CB121ZZ Planar Nuclear Medicine Imaging of Lungs and Bronchi using Technetium 99m (Tc-99m) (ICD-10-PCS; principal; 2019-03-26)
DX: L03.115 Cellulitis of right lower limb (principal); J96.90 Respiratory failure, unspecified, unspecified whether with hypoxia or hypercapnia; L97.919 Non-pressure chronic ulcer of unspecified part of right lower leg with unspecified severity; E66.2 Morbid (severe) obesity with alveolar hypoventilation; Z68.42 Body mass index [BMI] 45.0-49.9, adult; E87.5 Hyperkalemia; I25.10 Atherosclerotic heart disease of native coronary artery without angina pectoris; J44.9 Chronic obstructive pulmonary disease, unspecified; K21.9 Gastro-esophageal reflux disease without esophagitis; G89.4 Chronic pain syndrome; M19.90 Unspecified osteoarthritis, unspecified site; E11.622 Type 2 diabetes mellitus with other skin ulcer; Z60.2 Problems related to living alone; I89.0 Lymphedema, not elsewhere classified; I87.2 Venous insufficiency (chronic) (peripheral); T36.8X5A Adverse effect of other systemic antibiotics, initial encounter; R21 Rash and other nonspecific skin eruption; I50.9 Heart failure, unspecified; I11.0 Hypertensive heart disease with heart failure; Z88.2 Allergy status to sulfonamides; Z88.1 Allergy status to other antibiotic agents; Z91.041 Radiographic dye allergy status; Z83.3 Family history of diabetes mellitus; I25.2 Old myocardial infarction; Z86.718 Personal history of other venous thrombosis and embolism; Z86.73 Personal history of transient ischemic attack (TIA), and cerebral infarction without residual deficits; Z87.11 Personal history of peptic ulcer disease; Z87.440 Personal history of urinary (tract) infections; Z95.2 Presence of prosthetic heart valve; Z98.891 History of uterine scar from previous surgery; Z79.4 Long term (current) use of insulin; Z90.49 Acquired absence of other specified parts of digestive tract; Z95.1 Presence of aortocoronary bypass graft; Y92.89 Other specified places as the place of occurrence of the external cause
CPT/HCPCS: 36415; 36600; 71045; 73590; 73718; 76937; 78582; 80048; 80053; 80061; 80202; 81003; 82803; 82948; 83036; 83605; 83735; 84100; 84145; 84484; 85018; 85025; 85610; 85730; 87040; 87070; 87075; 87081; 93306; 93970; 94640; 94667; 94760; 96374; 96375; 97116; 97162; 97530; 99285; A9539; A9540; G0378; J0692; J0696; J1644; J1815; J1940; J2270; J2405; J3370; J7030; J7060; J7626

== ENCOUNTER 2019-04-15 19:57 | Inpatient (IN) | payer MEDICARE, MEDICAID ==
[~2019-04-15] VITALS: Ht 165.1 cm; Wt 113.0 kg
[~2019-04-15 19:57] MED LIST changes: +CELE-85 PO; +CHOL100046 PO; -CHOL2000 PO; +FEXO-62 PO; +GLIM4TAB PO; -LACT1CAP26 PO; -LEVO500T2 PO; +LOPE2CAP PO
[2019-04-15 21:12] LABS: BASOPHILS % (AUTO) 0.3 % (0-1); EOSINOPHILS # (AUTO) 0.2 X10'3 (0-0.9); EOSINOPHILS % (AUTO) 1.8 % (0-6); HEMATOCRIT 28.9 % (35.0-45.0); LYMPHOCYTES # (AUTO) 0.7 X10'3 (1.1-4.8); LYMPHOCYTES % (AUTO) 6.5 % (21-51); MEAN CORPUSCULAR HGB CONC 31.1 g/dL (33.0-36.5); MEAN CORPUSCULAR VOLUME 93.1 FL (78-98); MEAN PLATELET VOLUME 9.7 FL (7.4-10.4); MONOCYTES # (AUTO) 0.6 X10'3 (0-0.9); MONOCYTES % (AUTO) 6.4 % (2-12); NEUTROPHILS # (AUTO) 8.5 X10'3 (1.8-7.7); PLATELET COUNT 101 X10'3 (140-440); RED CELL DISTRIBUTION WIDTH 17.1 % (11.5-14.5)
[2019-04-15 21:35] LABS: CLARITY,URINE CLOUDY (Clear); COLOR,URINE YELLOW (Yellow); GLUCOSE, URINE NEGATIVE (Neg); KETONES,URINE NEGATIVE (Neg); LEUKOCYTE ESTERASE ,URINE LARGE (Neg); NITRITES, URINE NEGATIVE (Neg); OCCULT BLOOD,URINE TRACE-INTACT (Neg); PROTEIN,URINE NEGATIVE (Neg); UROBILINOGEN,URINE 0.2 E.U/dL (0.2-1.0)
[2019-04-15] MEDS ORDERED: piperacillin/tazo 3.375gm/50ml 50 ML IV ONE (21:35)
[2019-04-15] MEDS ORDERED: vancomycin/NS 1 GM ADD-VANTAGE 250 ML IV ONE (21:35)
[2019-04-15] MEDS ORDERED: normal saline 1000ML IV soln IVB ONE (21:35)
[2019-04-15] MEDS ORDERED: albuterol 2.5 MG/3 ML nebule CONTNEB PRN (21:35)
[2019-04-15 21:39] LABS: UA COLLECTION TYPE FOLEY CATH
[2019-04-15 21:44] LABS: BACTERIA,URINE 2+ /HPF (Neg); RBC,URINE NONE SEEN /HPF (0-2); SQUAMOUS EPITHELIAL CELL,UR FEW /LPF (FEW); WBC,URINE 20-30 /HPF (0-4)
[2019-04-15 21:45] LABS: WBC CLUMPS,URINE MANY /HPF (NEGATIVE)
[2019-04-15 21:54] LABS: ALANINE AMINOTRANSFERASE 24 U/L (12-78); ALBUMIN/GLOBULIN RATIO 0.7 (1.1-1.5); ALKALINE PHOSPHATASE 64 IU/L (46-116); ANION GAP 4 (8-16); ASPARTATE AMINO TRANSFERASE 20 U/L (10-37); BILIRUBIN,TOTAL 0.4 MG/DL (0.1-1.0); BLOOD UREA NITROGEN 63 MG/DL (7-18); BUN/CREATININE RATIO 43.8 (6.6-38.0); CALCIUM 9.4 MG/DL (8.5-10.1); CHLORIDE 111 MMOL/L (99-107); CREATININE 1.44 MG/DL (0.40-0.90); GLUCOSE 137 MG/DL (70-104); MAGNESIUM 2.3 MG/DL (1.5-2.4); SODIUM 151 MMOL/L (135-145); TOTAL CARBON DIOXIDE 36.2 MMOL/L (24-32); TOTAL PROTEIN 7.6 G/DL (6.4-8.2); eGFR 35 ML/MIN
[2019-04-15 22:05] LABS: PARTIAL THROMBOPLASTIN TIME 26 SECONDS (22-32)
[2019-04-15 22:07] LABS: POTASSIUM 6.4 MMOL/L (3.5-5.1)
--- NOTE | 2019-04-15 22:07 | NUR ---
POTASSIUM 6.4, REPORTED TO DR. RAYMUNDO
[2019-04-15] MEDS ORDERED: AMLO2.5T2 PO (22:08)
[2019-04-15] MEDS ORDERED: CARV-50 PO (22:08)
--- NOTE | 2019-04-15 22:10 | NUR ---
POTASSIUM 6.[address] MEDINA
--- NOTE | 2019-04-15 22:11 | NUR ---
Babs [phone] called and wants to talk to the patient. When asked relationship she states "she was my teacher for 4 years, she's my best friend, she is my second mom." Pt not able to field a call at this time.
[2019-04-15] MEDS ORDERED: FLUT1BLS3 INH (22:12)
[2019-04-15] MEDS ORDERED: IPRA3AMP31 IH (22:14)
[2019-04-15] MEDS ORDERED: dextrose 50%-water 50ml dispensing syringe IV ONE (22:15)
[2019-04-15] MEDS ORDERED: sodium polystyrene sulfonate 15gm/60ml oral suspension PO ONE (22:15)
[2019-04-15] MEDS ORDERED: calcium gluconate inj. 1 GM in normal saline 100ml IV soln 90 ML IV ONE (22:15)
[2019-04-15] MEDS ORDERED: insulin regular, human 10 units/0.1 ml syringe IV ONE (22:15)
[2019-04-15 22:20] LABS: ABG BASE EXCESS 7.1 mmol/L (-2.0-3.0); ABG HCO3 34.8 mmol/L (22.0-26.0); ABG OXYGEN SATURATION 89.5 % (95-98); ABG PCO2 (T) 70.4 mmHg (35.0-45.0); ABG PH (T) 7.312 (7.350-7.450); ABG PO2 (T) 64.2 mmHg (83-108); FCOHb 0.7 % (0.5-1.5); FLOW 8 L/min; FMetHb 0.1 % (0.3-1.12); FO2Hb 88.8 % (94-100); PATIENT TEMPERATURE 37.2; RESPIRATORY RATE (OBSERVED) 16 b/min; TOTAL HEMOGLOBIN 9.4 G/dl (12.0-16.0)
[2019-04-15] MEDS ORDERED: dextrose ORAL solution 15 GM/59 ML bottle PO PRN ×2 (22:30)
[2019-04-15] MEDS ORDERED: magnesium 4gm in 100ml NS 100 ML IV PRN (22:30)
[2019-04-15] MEDS ORDERED: ondansetron/PF 4mg/2ml inj IV PRN (22:30)
[2019-04-15] MEDS ORDERED: acetaminophen 325mg tablet PO PRN ×2 (22:30)
[2019-04-15] MEDS ORDERED: potassium CL 10mEq/100ml bag 100 ML IV PRN ×2 (22:30)
[2019-04-15] MEDS ORDERED: glucagon, human recombinant 1mg kit SUBCUT PRN (22:30)
[2019-04-15] MEDS ORDERED: potassium Cl 20 mEq SR tablet PO PRN (22:30)
[2019-04-15] MEDS ORDERED: magnesium hydroxide 30ml (MOM) UD suspension PO PRN (22:30)
[2019-04-15] MEDS ORDERED: dextrose 50%-water 50ml dispensing syringe IV PRN ×2 (22:30)
[2019-04-15] MEDS ORDERED: MESSAGE TO PHARMACY PO ONE (22:30)
[2019-04-15] MEDS ORDERED: magnesium 2GM in 50ml NS 50 ML IV PRN (22:30)
[2019-04-15] MEDS ORDERED: morphine 2 MG/ML inj. syringe IV PRN ×2 (22:30)
[2019-04-15] MEDS ORDERED: magnesium Cl slow-release 64mg tablet PO PRN (22:30)
[2019-04-15] MEDS ORDERED: mag hydrox/Alum hydrox/simeth 30ml oral suspension PO PRN (22:30)
[2019-04-15 23:11] LABS: AMMONIA < 10 UMOL/L (11-32)
[2019-04-15 23:18] LABS: LACTIC SEPSIS 1.1 MMOL/L (0.4-2.0)
[2019-04-15] MEDS: normal saline 1000ml 1,000 ML IV SCH (23:20)
[2019-04-15] MEDS ORDERED: LORazepam 2 mg/ml vial IV ONE (23:45)
[2019-04-16] VITALS (8 sets, daily range): BP systolic 123–160; BP diastolic 40–71
[2019-04-16] MEDS ORDERED: docusate sod 100mg capsule PO PRN (00:25)
--- NOTE | 2019-04-16 00:27 | NUR ---
Patient in room PCU 3016. I have received report from Fahad MELTON and had the opportunity to ask questions and assume patient care.
[2019-04-16] MEDS: normal saline 1000ml 1,000 ML IV SCH (00:32)
[2019-04-16] MEDS ORDERED: ipratropium/albuterol 3ml nebule NEB PRN (00:35)
[2019-04-16] MEDS: heparin, porcine 5000 units/ml vial SQ SCH ×3 (00:53→16:58)
[2019-04-16 01:24] LABS: ALBUMIN 2.5 G/DL (3.4-5.0); ANION GAP 2 (8-16); BLOOD UREA NITROGEN 62 MG/DL (7-18); BUN/CREATININE RATIO 40.5 (6.6-38.0); CALCIUM 9.1 MG/DL (8.5-10.1); CHLORIDE 114 MMOL/L (99-107); CREATININE 1.53 MG/DL (0.40-0.90); GLUCOSE 232 MG/DL (70-104); MAGNESIUM 2.3 MG/DL (1.5-2.4); SODIUM 152 MMOL/L (135-145); TROPONIN I < 0.04 NG/ML (0.0-0.05); eGFR 33 ML/MIN
--- NOTE | 2019-04-16 01:30 | NUR ---
Page Sent promotional table spacer PAGER ID: [phone] MESSAGE: Melvi Jacques [id number]- Acute resp failure, acute copd, uti, ARF. critical potassium of 6 from previous 6.4. Marques [phone]
[2019-04-16] MEDS ORDERED: insulin regular, human 10 units/0.1 ml syringe IV ONE ×2 (01:55→05:35)
[2019-04-16] MEDS ORDERED: dextrose 50%-water 50ml dispensing syringe IV ONE ×2 (01:55→05:35)
[2019-04-16] MEDS: ipratropium/albuterol 3ml nebule NEB SCH ×6 (05:05→23:32)
[2019-04-16 05:21] LABS: ALBUMIN 2.6 G/DL (3.4-5.0); ANION GAP 8 (8-16); BLOOD UREA NITROGEN 61 MG/DL (7-18); BUN/CREATININE RATIO 43.3 (6.6-38.0); CALCIUM 9.2 MG/DL (8.5-10.1); CHLORIDE 113 MMOL/L (99-107); CREATININE 1.41 MG/DL (0.40-0.90); GLUCOSE 254 MG/DL (70-104); SODIUM 151 MMOL/L (135-145); TOTAL CARBON DIOXIDE 29.7 MMOL/L (24-32); eGFR 36 ML/MIN
--- NOTE | 2019-04-16 05:28 | NUR ---
Page Sent promotional table spacer PAGER ID: [phone] MESSAGE: Melvi Jacques [id number] critical potassium of 6.0 again. Marques [phone]
[2019-04-16] MEDS ORDERED: calcium gluconate inj. 1 GM in normal saline 100ml IV soln 90 ML IV ONE (05:35)
[2019-04-16] MEDS ORDERED: sodium polystyrene sulfonate 15gm/60ml oral suspension PO ONE (05:35)
[2019-04-16] MEDS ORDERED: sodium bicarbonate inj. 50 ML in dextrose 5% water 500ml 500 ML IV ONE (06:00)
--- NOTE | 2019-04-16 06:29 | NUR ---
Patient in room PCU 3016. I have received report from LINH Mohan and had the opportunity to ask questions and assume patient care.
--- NOTE | 2019-04-16 06:30 | NUR ---
Problems reprioritized. Patient report given, questions answered & plan of care reviewed with Amber MELTON.
[2019-04-16] MEDS: budesonide 0.5mg/2ml UD nebule IH SCH ×2 (07:09→19:05)
[2019-04-16] MEDS: K and/or MAG REPLACEMENT MC SCH (08:00)
[2019-04-16] MEDS ORDERED: CefTRIAXone 2gm/D5W 50ml 50 ML IV SCH (08:00)
--- NOTE | 2019-04-16 08:30 | NUR ---
Dr. Morales at bedside. Orders received for Destin lyons ABG. Addendum: 04/16/19 at 1046 by Mireya Domingo RN Order received from Dr. Morales for wound care consult.
[2019-04-16] MEDS: ferrous sulfate 325mg tablet PO SCH ×2 (08:54→22:58)
[2019-04-16] MEDS: carVEDilol 12.5mg tablet PO SCH ×2 (08:55→22:58)
[2019-04-16] MEDS: amLODIPine 5mg tablet PO SCH (08:55)
[2019-04-16] MEDS: vitamin D (cholecalciferol) 1,000 unit tablet PO SCH (08:55)
[2019-04-16] MEDS: predniSONE 20 mg tablet PO SCH (08:55)
[2019-04-16] MEDS: gabapentin 100mg capsule PO SCH ×3 (08:55→22:59)
--- NOTE | 2019-04-16 10:26 | NUR ---
Messaged pharmacy for patient's humalog and lantus, unable to treat AM FSBG as medication not available.
--- NOTE | 2019-04-16 10:39 | NUR ---
Pt's longtime caregiver Libertad at bedside, questioning pt's code status. On previous hospital admission of 03/25/19, H&P stated pt wished to receive chest compressions & defibrillation but no intubation or ventilation. Dr. Morales at nurses station, this RN notified provider of discussion with pt's caregiver & previous hospital admission.
[2019-04-16] MEDS ORDERED: PANT40TA4 PO (11:19)
[2019-04-16] MEDS ORDERED: AMLO10TA PO (11:19)
[2019-04-16] MEDS ORDERED: GABA-532 PO (11:19)
[2019-04-16] MEDS ORDERED: MULT-1085 PO (11:20)
[2019-04-16] MEDS ORDERED: NITR0.4T48 SL (11:20)
[2019-04-16] MEDS ORDERED: IPRA3AMP31 IH (11:20)
[2019-04-16] MEDS ORDERED: ALBU18HF2 INH (11:20)
[2019-04-16] MEDS ORDERED: INSU100V5 IJ (11:20)
[2019-04-16] MEDS ORDERED: GLIM4TAB4 PO (11:20)
[2019-04-16] MEDS ORDERED: ACET-2119 PO (11:20)
[2019-04-16] MEDS ORDERED: POTA8TAB8 PO (11:20)
[2019-04-16] MEDS ORDERED: MAGN400O6 PO (11:20)
[2019-04-16] MEDS ORDERED: ASCO500C15 PO (11:20)
[2019-04-16] MEDS ORDERED: HYDR-3972 PO (11:20)
[2019-04-16] MEDS ORDERED: FURO-149 PO (11:20)
[2019-04-16] MEDS ORDERED: FLUT1BLS3 IH (11:20)
[2019-04-16] MEDS ORDERED: LOSA1TAB41 PO (11:20)
[2019-04-16] MEDS ORDERED: LACTC PO (11:20)
[2019-04-16] MEDS ORDERED: FEXO180T94 PO (11:20)
[2019-04-16 11:30] LABS: ABG BASE EXCESS 11.4 mmol/L (-2.0-3.0); ABG OXYGEN SATURATION 90.1 % (95-98); ABG PCO2 (T) 63.7 mmHg (35.0-45.0); ABG PH (T) 7.393 (7.350-7.450); ABG PO2 (T) 59.8 mmHg (83-108); FCOHb 0.3 % (0.5-1.5); FMetHb 0.4 % (0.3-1.12); FO2Hb 89.5 % (94-100); MINUTE VOLUME 14 L/min; RESPIRATORY RATE 18 b/min; RESPIRATORY RATE (OBSERVED) 20 b/min; TIDAL VOLUME 624 mL
--- NOTE | 2019-04-16 11:35 | NUR ---
paged Dr. Morales PAGER ID: [phone] MESSAGE: G resulted on Melviacosta Jacques in [id number]. thanks! Amber MELTON [phone]
[2019-04-16] MEDS: sodium polystyrene sulfonate 15gm/60ml oral suspension PO ONE ×2 (11:50→13:15)
[2019-04-16 11:52] LABS: BASOPHILS % (AUTO) 0.5 % (0-1); EOSINOPHILS % (AUTO) 0.2 % (0-6); HEMATOCRIT 27.1 % (35.0-45.0); HEMOGLOBIN 8.3 g/dl (12.0-16.0); LYMPHOCYTES # (AUTO) 0.4 X10'3 (1.1-4.8); LYMPHOCYTES % (AUTO) 4.9 % (21-51); MEAN CORPUSCULAR HEMOGLOBIN 28.4 PG (27.0-31.0); MEAN CORPUSCULAR HGB CONC 30.6 g/dL (33.0-36.5); MEAN CORPUSCULAR VOLUME 92.7 FL (78-98); MEAN PLATELET VOLUME 8.2 FL (7.4-10.4); MONOCYTES # (AUTO) 0.4 X10'3 (0-0.9); MONOCYTES % (AUTO) 4.9 % (2-12); NEUTROPHILS # (AUTO) 8.2 X10'3 (1.8-7.7); NEUTROPHILS % (AUTO) 89.5 % (42-75); PLATELET COUNT 109 X10'3 (140-440); RED BLOOD COUNT 2.92 X10'6 (4.20-5.60); RED CELL DISTRIBUTION WIDTH 15.4 % (11.5-14.5); WHITE BLOOD COUNT 9.2 X10'3 (4.5-11.0)
[2019-04-16 12:22] LABS: ALBUMIN 2.6 G/DL (3.4-5.0); ANION GAP 3 (8-16); BLOOD UREA NITROGEN 49 MG/DL (7-18); BUN/CREATININE RATIO 41.2 (6.6-38.0); CALCIUM 9.6 MG/DL (8.5-10.1); CHLORIDE 115 MMOL/L (99-107); CREATININE 1.19 MG/DL (0.40-0.90); GLUCOSE 269 MG/DL (70-104); MAGNESIUM 2.2 MG/DL (1.5-2.4); PHOSPHORUS 2.5 MG/DL (2.3-4.5); POTASSIUM 4.6 MMOL/L (3.5-5.1); SODIUM 154 MMOL/L (135-145); TOTAL CARBON DIOXIDE 36.1 MMOL/L (24-32); eGFR 44 ML/MIN
--- NOTE | 2019-04-16 12:38 | NUR ---
paged Dr. Morales re bipap back on pt. PAGER ID: [phone] MESSAGE: Melvi Jacques in [id number]. Bipap back on. O2 sats too low with mask. Thanks! Amber MELTON [phone]
[2019-04-16] MEDS: furosemide 40mg/4ml inj IV SCH ×2 (12:45→22:57)
--- NOTE | 2019-04-16 13:25 | NUR ---
Paged Dr. Morales re pt refusing Kayexalate. Attempted to administer medication, pt took one sip through a straw and refused to take any more. Pt educated on need for medication and high K levels. Pt continued to refuse and would not open mouth for medication and batted this RNs hands away. Will continue to closely monitor. PAGER ID: [phone] MESSAGE: Pt Louise Jacques in [id number] refusing kayexalate. thanks! Amber RN [phone]
--- NOTE | 2019-04-16 13:44 | NUR ---
DM consult: A1c is 6.7; DM ed not warranted at this time. Will continue to follow. Addendum: 04/16/19 at [address] Amended: Links added.
--- NOTE | 2019-04-16 14:26 | NUR ---
WOUND INFECTION EDUCATION PROVIDED BY WOUND CARE 1. Patient instructed to call their primary doctor, or go the ED immediately if any of the following symptoms occur: * Increased pain in wound * Increase in drainage from the wound * Redness in the skin surrounding the wound * Warmth in the skin surrounding the wound * Bleeding from the wound * Temperature of 101 or greater 2. If any of these occur while in the hospital tell a nurse immediately. Addendum: 04/16/19 at 1427 by Vianey Rosas RN Amended: Links added.
[2019-04-16] MEDS: insulin Lispro (HumaLOG) vial - multi-dose SQ SCH ×2 (15:31→19:24)
--- NOTE | 2019-04-16 18:18 | NUR ---
Problems reprioritized. Patient report given, questions answered & plan of care reviewed with LINH Mohan.
--- NOTE | 2019-04-16 18:33 | NUR ---
Patient in room PCU 3016. I have received report from Amber MELTON and had the opportunity to ask questions and assume patient care.
[2019-04-16] MEDS: insulin glargine (Lantus) pen - multi-dose SQ SCH (22:37)
[2019-04-17] MEDS: heparin, porcine 5000 units/ml vial SQ SCH ×4 (00:59→23:55)
[2019-04-17 02:00] VITALS: BP 179/38
[2019-04-17] MEDS: ipratropium/albuterol 3ml nebule NEB SCH ×6 (03:48→23:24)
[2019-04-17 05:26] LABS: ALBUMIN 2.5 G/DL (3.4-5.0); ANION GAP 3 (8-16); BLOOD UREA NITROGEN 43 MG/DL (7-18); BUN/CREATININE RATIO 36.8 (6.6-38.0); CALCIUM 9.4 MG/DL (8.5-10.1); CHLORIDE 115 MMOL/L (99-107); CREATININE 1.17 MG/DL (0.40-0.90); GLUCOSE 174 MG/DL (70-104); MAGNESIUM 2.1 MG/DL (1.5-2.4); POTASSIUM 3.6 MMOL/L (3.5-5.1); eGFR 45 ML/MIN
[2019-04-17 05:30] LABS: SODIUM 159 MMOL/L (135-145); TOTAL CARBON DIOXIDE 40.7 MMOL/L (24-32)
--- NOTE | 2019-04-17 05:33 | NUR ---
Page Sent promotional table spacer PAGER ID: [phone] MESSAGE: Melvi Jacques [phone] here for Acute resp failure, acute copd, arf, uti- critical Na of 159 and CO2 of 40.7 Patient has no fluids running and has been on bipap all night at fio2 of 40%. Just letting you know. Marques [phone]
[2019-04-17 05:53] LABS: BASOPHILS % (AUTO) 0.4 % (0-1); EOSINOPHILS % (AUTO) 0.1 % (0-6); HEMATOCRIT 23.9 % (35.0-45.0); HEMOGLOBIN 7.5 g/dl (12.0-16.0); LYMPHOCYTES # (AUTO) 0.9 X10'3 (1.1-4.8); LYMPHOCYTES % (AUTO) 13.6 % (21-51); MEAN CORPUSCULAR HGB CONC 31.4 g/dL (33.0-36.5); MEAN CORPUSCULAR VOLUME 92.2 FL (78-98); MEAN PLATELET VOLUME 8.4 FL (7.4-10.4); MONOCYTES % (AUTO) 14.9 % (2-12); NEUTROPHILS # (AUTO) 4.9 X10'3 (1.8-7.7); PLATELET COUNT 127 X10'3 (140-440); RED BLOOD COUNT 2.59 X10'6 (4.20-5.60); RED CELL DISTRIBUTION WIDTH 15.8 % (11.5-14.5); WHITE BLOOD COUNT 6.9 X10'3 (4.5-11.0)
--- NOTE | 2019-04-17 06:17 | NUR ---
Problems reprioritized. Patient report given, questions answered & plan of care reviewed with Matilda MELTON.
--- NOTE | 2019-04-17 06:17 | NUR ---
Patient in room PCU 3016. I have received report from reji Camp and had the opportunity to ask questions and assume patient care.
[2019-04-17 07:00] VITALS: BP 131/79
[2019-04-17] MEDS: budesonide 0.5mg/2ml UD nebule IH SCH ×2 (07:25→19:30)
[2019-04-17] MEDS: K and/or MAG REPLACEMENT MC SCH (08:00)
[2019-04-17] MEDS: vitamin D (cholecalciferol) 1,000 unit tablet PO SCH (08:45)
[2019-04-17] MEDS: carVEDilol 12.5mg tablet PO SCH ×2 (08:45→19:44)
[2019-04-17] MEDS: ferrous sulfate 325mg tablet PO SCH ×2 (08:45→19:44)
[2019-04-17] MEDS: amLODIPine 5mg tablet PO SCH (08:46)
[2019-04-17] MEDS: predniSONE 20 mg tablet PO SCH (08:46)
[2019-04-17] MEDS: gabapentin 100mg capsule PO SCH ×3 (08:46→21:24)
[2019-04-17] MEDS: furosemide 40mg/4ml inj IV SCH ×2 (08:47→19:44)
[2019-04-17] MEDS: HYDROcodone/acetaminophen 5mg/325mg tablet PO PRN ×2 (09:44→16:17)
[2019-04-17] MEDS: insulin Lispro (HumaLOG) vial - multi-dose SQ SCH ×4 (09:47→21:40)
[2019-04-17 11:00] VITALS: BP 144/48
[2019-04-17 15:00] VITALS: BP 121/42
[2019-04-17 17:03] LABS: ALBUMIN 2.6 G/DL (3.4-5.0); ANION GAP 1 (8-16); BLOOD UREA NITROGEN 44 MG/DL (7-18); BUN/CREATININE RATIO 35.8 (6.6-38.0); CALCIUM 9.5 MG/DL (8.5-10.1); CHLORIDE 112 MMOL/L (99-107); CREATININE 1.23 MG/DL (0.40-0.90); GLUCOSE 247 MG/DL (70-104); POTASSIUM 4.1 MMOL/L (3.5-5.1); eGFR 42 ML/MIN
[2019-04-17 17:06] LABS: SODIUM 155 MMOL/L (135-145)
[2019-04-17 17:07] LABS: TOTAL CARBON DIOXIDE 41.7 MMOL/L (24-32)
--- NOTE | 2019-04-17 17:09 | NUR ---
PAGER ID: [phone] MESSAGE: [id number] henry, critical Na: 155 CO2: 41.7 previous Na: 159 CO2:40.7 Matilda MELTON [phone]
--- NOTE | 2019-04-17 18:12 | NUR ---
Problems reprioritized. Patient report given, questions answered & plan of care reviewed with get MELTON.
--- NOTE | 2019-04-17 18:20 | NUR ---
Problems reprioritized. Patient report given, questions answered & plan of care reviewed with Jenny MELTON.
[2019-04-17 19:00] VITALS: BP 155/43
[2019-04-17] MEDS: insulin glargine (Lantus) pen - multi-dose SQ SCH (21:42)
[2019-04-17 23:00] VITALS: BP 155/43
[2019-04-18 03:00] VITALS: BP 138/41
[2019-04-18] MEDS: ipratropium/albuterol 3ml nebule NEB SCH ×6 (03:18→23:14)
--- NOTE | 2019-04-18 06:41 | NUR ---
Patient in room PCU 3016. I have received report from cholo MELTON and had the opportunity to ask questions and assume patient care.
--- NOTE | 2019-04-18 06:42 | NUR ---
Patient in room PCU 3016 A. I have received report from Jenny MELTON and had the opportunity to ask questions and assume patient care.
[2019-04-18 07:00] VITALS: BP 132/43
[2019-04-18] MEDS: budesonide 0.5mg/2ml UD nebule IH SCH ×2 (07:20→23:13)
[2019-04-18] MEDS: K and/or MAG REPLACEMENT MC SCH (08:00)
[2019-04-18] MEDS: ferrous sulfate 325mg tablet PO SCH ×2 (08:16→19:41)
[2019-04-18] MEDS: gabapentin 100mg capsule PO SCH ×3 (08:16→20:01)
[2019-04-18] MEDS: predniSONE 20 mg tablet PO SCH (08:16)
[2019-04-18] MEDS: heparin, porcine 5000 units/ml vial SQ SCH ×2 (08:16→16:37)
[2019-04-18] MEDS: vitamin D (cholecalciferol) 1,000 unit tablet PO SCH (08:16)
[2019-04-18] MEDS: furosemide 40mg/4ml inj IV SCH ×2 (08:16→19:41)
[2019-04-18] MEDS: amLODIPine 5mg tablet PO SCH (08:17)
[2019-04-18] MEDS: carVEDilol 12.5mg tablet PO SCH ×2 (08:17→19:41)
[2019-04-18 08:47] LABS: BASOPHILS % (AUTO) 0.3 % (0-1); EOSINOPHILS % (AUTO) 0.2 % (0-6); HEMATOCRIT 27.9 % (35.0-45.0); HEMOGLOBIN 8.8 g/dl (12.0-16.0); LYMPHOCYTES # (AUTO) 1.1 X10'3 (1.1-4.8); LYMPHOCYTES % (AUTO) 11.9 % (21-51); MEAN CORPUSCULAR HEMOGLOBIN 28.9 PG (27.0-31.0); MEAN CORPUSCULAR HGB CONC 31.6 g/dL (33.0-36.5); MEAN CORPUSCULAR VOLUME 91.7 FL (78-98); MEAN PLATELET VOLUME 8.1 FL (7.4-10.4); MONOCYTES # (AUTO) 0.9 X10'3 (0-0.9); MONOCYTES % (AUTO) 9.4 % (2-12); NEUTROPHILS # (AUTO) 7.3 X10'3 (1.8-7.7); NEUTROPHILS % (AUTO) 78.2 % (42-75); PLATELET COUNT 152 X10'3 (140-440); RED BLOOD COUNT 3.04 X10'6 (4.20-5.60); RED CELL DISTRIBUTION WIDTH 15.8 % (11.5-14.5); WHITE BLOOD COUNT 9.4 X10'3 (4.5-11.0)
[2019-04-18 08:57] LABS: ALBUMIN 2.9 G/DL (3.4-5.0); ANION GAP 4 (8-16); BLOOD UREA NITROGEN 39 MG/DL (7-18); BUN/CREATININE RATIO 33.3 (6.6-38.0); CALCIUM 9.3 MG/DL (8.5-10.1); CHLORIDE 107 MMOL/L (99-107); CREATININE 1.17 MG/DL (0.40-0.90); GLUCOSE 172 MG/DL (70-104); POTASSIUM 3.4 MMOL/L (3.5-5.1); SODIUM 154 MMOL/L (135-145); eGFR 45 ML/MIN
[2019-04-18 09:01] LABS: TOTAL CARBON DIOXIDE 43.4 MMOL/L (24-32)
--- NOTE | 2019-04-18 09:22 | NUR ---
Dr. Monge paged PAGER ID: [phone] MESSAGE: [id number] henry Critical lab CO2 43.4 yesterday CO2 41.7 Matilda MELTON [phone]
[2019-04-18] MEDS: insulin Lispro (HumaLOG) vial - multi-dose SQ SCH ×3 (09:31→18:42)
[2019-04-18] MEDS: HYDROcodone/acetaminophen 5mg/325mg tablet PO PRN ×2 (10:57→20:02)
[2019-04-18 11:00] VITALS: BP 133/55
[2019-04-18 13:40] LABS: ABG BASE EXCESS 14.5 mmol/L (-2.0-3.0); ABG HCO3 40.2 mmol/L (22.0-26.0); ABG OXYGEN SATURATION 85.3 % (95-98); ABG PCO2 (T) 57.2 mmHg (35.0-45.0); ABG PH (T) 7.465 (7.350-7.450); ABG PO2 (T) 51.3 mmHg (83-108); FCOHb 0.4 % (0.5-1.5); FMetHb 0.1 % (0.3-1.12); FO2Hb 84.9 % (94-100); RESPIRATORY RATE (OBSERVED) 20 b/min; TOTAL HEMOGLOBIN 10.1 G/dl (12.0-16.0)
[2019-04-18] MEDS: potassium Cl 20 mEq SR tablet PO PRN ×2 (14:00→18:42)
[2019-04-18 15:00] VITALS: BP 136/43
--- NOTE | 2019-04-18 18:22 | NUR ---
Problems reprioritized. Patient report given, questions answered & plan of care reviewed with Caitlyn MELTON.
--- NOTE | 2019-04-18 18:35 | NUR ---
Patient in room PCU 3016. I have received report from Matilda MELTON and Genoveva RN and had the opportunity to ask questions and assume patient care.
[2019-04-18 19:00] VITALS: BP 145/46
[2019-04-18] MEDS ORDERED: VANCOMYCIN LEVEL IV ONE (19:30)
[2019-04-18] MEDS: insulin glargine (Lantus) pen - multi-dose SQ SCH (21:25)
[2019-04-18 22:00] VITALS: BP 113/44
[2019-04-19] MEDS: heparin, porcine 5000 units/ml vial SQ SCH ×2 (00:06→07:52)
[2019-04-19 02:00] VITALS: BP 144/42
[2019-04-19] MEDS: HYDROcodone/acetaminophen 5mg/325mg tablet PO PRN ×3 (02:15→16:31)
[2019-04-19] MEDS: ipratropium/albuterol 3ml nebule NEB SCH ×6 (02:48→23:09)
--- NOTE | 2019-04-19 04:51 | NUR ---
Patient has new onset A-fib with rate in the 90's-100's. BP 141/65. Dr Prieto notified, states to wait and notify "day team".
[2019-04-19 05:49] LABS: BASOPHILS % (AUTO) 0.3 % (0-1); EOSINOPHILS # (AUTO) 0.1 X10'3 (0-0.9); EOSINOPHILS % (AUTO) 0.6 % (0-6); HEMATOCRIT 25.5 % (35.0-45.0); HEMOGLOBIN 8.1 g/dl (12.0-16.0); LYMPHOCYTES # (AUTO) 1.7 X10'3 (1.1-4.8); LYMPHOCYTES % (AUTO) 20.9 % (21-51); MEAN CORPUSCULAR HEMOGLOBIN 28.8 PG (27.0-31.0); MEAN CORPUSCULAR HGB CONC 31.7 g/dL (33.0-36.5); MEAN CORPUSCULAR VOLUME 90.9 FL (78-98); MEAN PLATELET VOLUME 8.4 FL (7.4-10.4); MONOCYTES # (AUTO) 0.7 X10'3 (0-0.9); MONOCYTES % (AUTO) 9.2 % (2-12); NEUTROPHILS # (AUTO) 5.4 X10'3 (1.8-7.7); PLATELET COUNT 138 X10'3 (140-440); RED CELL DISTRIBUTION WIDTH 15.8 % (11.5-14.5); WHITE BLOOD COUNT 7.9 X10'3 (4.5-11.0)
--- NOTE | 2019-04-19 05:55 | NUR ---
[place] documentation: I have reviewed and agree with all interventions, assessments performed and documented by Sweta MELTON. [place] Medication Administration: For this medication-pass time frame, all medication were reviewed, dispensed, administered and documented per hospital policy by Sweta MELTON.
[2019-04-19 06:06] LABS: ALBUMIN 2.8 G/DL (3.4-5.0); ANION GAP 2 (8-16); BLOOD UREA NITROGEN 36 MG/DL (7-18); CALCIUM 9.1 MG/DL (8.5-10.1); CHLORIDE 106 MMOL/L (99-107); CREATININE 1.03 MG/DL (0.40-0.90); GLUCOSE 85 MG/DL (70-104); MAGNESIUM 1.8 MG/DL (1.5-2.4); POTASSIUM 3.5 MMOL/L (3.5-5.1); SODIUM 151 MMOL/L (135-145); eGFR 52 ML/MIN
[2019-04-19 06:08] LABS: TOTAL CARBON DIOXIDE 42.9 MMOL/L (24-32)
--- NOTE | 2019-04-19 06:08 | NUR ---
Problems reprioritized. Patient report given, questions answered & plan of care reviewed with Triny MELTON.
--- NOTE | 2019-04-19 06:28 | NUR ---
Patient in room PCU 3016. I have received report from Caitlyn MELTON and had the opportunity to ask questions and assume patient care.
[2019-04-19 06:50] VITALS: BP 141/65
[2019-04-19] MEDS: budesonide 0.5mg/2ml UD nebule IH SCH ×2 (07:05→21:14)
[2019-04-19] MEDS: carVEDilol 12.5mg tablet PO SCH ×2 (07:51→19:53)
[2019-04-19] MEDS: predniSONE 20 mg tablet PO SCH (07:51)
[2019-04-19] MEDS: amLODIPine 5mg tablet PO SCH (07:51)
[2019-04-19] MEDS: vitamin D (cholecalciferol) 1,000 unit tablet PO SCH (07:52)
[2019-04-19] MEDS: gabapentin 100mg capsule PO SCH ×3 (07:52→20:01)
[2019-04-19] MEDS: furosemide 40mg/4ml inj IV SCH ×2 (07:52→19:53)
[2019-04-19] MEDS: ferrous sulfate 325mg tablet PO SCH ×2 (07:52→19:53)
[2019-04-19] MEDS: K and/or MAG REPLACEMENT MC SCH (08:00)
[2019-04-19] MEDS: insulin Lispro (HumaLOG) vial - multi-dose SQ SCH ×4 (08:12→21:14)
[2019-04-19 11:00] VITALS: BP 128/50
[2019-04-19 15:00] VITALS: BP 104/61
--- NOTE | 2019-04-19 18:33 | NUR ---
Patient in room PCU 3016. I have received report from Matilda MELTON and had the opportunity to ask questions and assume patient care.
--- NOTE | 2019-04-19 18:48 | NUR ---
Problems reprioritized. Patient report given, questions answered & plan of care reviewed with Caitlyn MELTON.
[2019-04-19] MEDS: apixaban 5mg tablet PO SCH (19:53)
[2019-04-19] MEDS: insulin glargine (Lantus) pen - multi-dose SQ SCH (21:15)
[2019-04-19 22:00] VITALS: BP 128/52
[2019-04-20 02:00] VITALS: BP 121/43
[2019-04-20] MEDS: HYDROcodone/acetaminophen 5mg/325mg tablet PO PRN (02:38)
[2019-04-20] MEDS: ipratropium/albuterol 3ml nebule NEB SCH ×3 (03:20→11:54)
--- NOTE | 2019-04-20 06:05 | NUR ---
Problems reprioritized. Patient report given, questions answered & plan of care reviewed with Matilda MELTON and Cassandra MELTON.
--- NOTE | 2019-04-20 06:23 | NUR ---
Patient in room PCU 3016. I have received report from Caitlyn MELTON and had the opportunity to ask questions and assume patient care.
[2019-04-20 06:25] LABS: BASOPHILS % (AUTO) 0.3 % (0-1); EOSINOPHILS % (AUTO) 0.4 % (0-6); HEMATOCRIT 25.4 % (35.0-45.0); HEMOGLOBIN 8.3 g/dl (12.0-16.0); LYMPHOCYTES # (AUTO) 2.1 X10'3 (1.1-4.8); LYMPHOCYTES % (AUTO) 22.7 % (21-51); MEAN CORPUSCULAR HEMOGLOBIN 29.7 PG (27.0-31.0); MEAN CORPUSCULAR HGB CONC 32.7 g/dL (33.0-36.5); MEAN CORPUSCULAR VOLUME 90.8 FL (78-98); MEAN PLATELET VOLUME 8.6 FL (7.4-10.4); MONOCYTES # (AUTO) 0.8 X10'3 (0-0.9); MONOCYTES % (AUTO) 8.4 % (2-12); NEUTROPHILS # (AUTO) 6.2 X10'3 (1.8-7.7); NEUTROPHILS % (AUTO) 68.2 % (42-75); PLATELET COUNT 143 X10'3 (140-440); RED CELL DISTRIBUTION WIDTH 15.9 % (11.5-14.5); WHITE BLOOD COUNT 9.1 X10'3 (4.5-11.0)
[2019-04-20 06:47] LABS: ALBUMIN 2.8 G/DL (3.4-5.0); ANION GAP 5 (8-16); BLOOD UREA NITROGEN 35 MG/DL (7-18); CALCIUM 8.6 MG/DL (8.5-10.1); CHLORIDE 102 MMOL/L (99-107); CREATININE 1.13 MG/DL (0.40-0.90); GLUCOSE 103 MG/DL (70-104); MAGNESIUM 1.8 MG/DL (1.5-2.4); POTASSIUM 3.7 MMOL/L (3.5-5.1); SODIUM 147 MMOL/L (135-145); TOTAL CARBON DIOXIDE 39.7 MMOL/L (24-32); eGFR 47 ML/MIN
[2019-04-20 06:51] VITALS: BP 140/70
[2019-04-20] MEDS: K and/or MAG REPLACEMENT MC SCH (08:00)
[2019-04-20] MEDS: carVEDilol 12.5mg tablet PO SCH (08:29)
[2019-04-20] MEDS: furosemide 40mg/4ml inj IV SCH (08:29)
[2019-04-20] MEDS: gabapentin 100mg capsule PO SCH ×2 (08:29→13:04)
[2019-04-20] MEDS: vitamin D (cholecalciferol) 1,000 unit tablet PO SCH (08:29)
[2019-04-20] MEDS: apixaban 5mg tablet PO SCH (08:29)
[2019-04-20] MEDS: predniSONE 20 mg tablet PO SCH (08:29)
[2019-04-20] MEDS: amLODIPine 5mg tablet PO SCH (08:30)
[2019-04-20] MEDS: ferrous sulfate 325mg tablet PO SCH (08:30)
[2019-04-20] MEDS: insulin Lispro (HumaLOG) vial - multi-dose SQ SCH ×2 (08:33→13:09)
[2019-04-20] MEDS: budesonide 0.5mg/2ml UD nebule IH SCH (08:45)
--- NOTE | 2019-04-20 09:55 | NUR ---
Initial: Pt presented with SOB and admit with encephalopathy secondary to acute respiratory failure and COPD exacerbation. Per MD notes metabolic acidosis, acute encephalopathy, and acute respiratory failure improving. Pt currently on a renal CHO controlled diet with improving PO intake, previously 0-25% now averaging 75% likely closely meeting nutrient needs. [facility] 04/20. Will continue to follow and monitor need for ONS pending additional trends in PO intake. Recommendations: 1) Diet change to heart healthy CHO controlled 2) Monitor need for ONS 3) Wt per rx Addendum: 04/20/19 at [address] Amended: Links added.
[2019-04-20 11:00] VITALS: BP 127/69
[2019-04-20] MEDS ORDERED: APIX5TAB3 PO (11:03)
[2019-04-20] MEDS ORDERED: GABA-530 PO (11:03)
[2019-04-20] MEDS ORDERED: PRED20TA PO (11:03)
--- NOTE | 2019-04-20 15:05 | NUR ---
patient discharged to [facility]. IVs removed cannula intact. patient was picked up and transfer packet was given to her. Patient was accompanied by friend. Addendum: 04/20/19 at 1515 by Matilda Acosta RN Dr. Monge stated to keep the Humphrey in. Humphrey was left in.
== END 2019-04-20 15:04 | DRG 682 ==
LOC: ER 19:57 → PCU 3S 23:51
PROVIDERS: ADMIT Hospitalist; ATTEND Family Medicine
PROC: 5A09357 Assistance with Respiratory Ventilation, Less than 24 Consecutive Hours, Continuous Positive Airway Pressure (ICD-10-PCS; principal; 2019-04-16)
DX: N17.0 Acute kidney failure with tubular necrosis (principal); J96.21 Acute and chronic respiratory failure with hypoxia; I50.33 Acute on chronic diastolic (congestive) heart failure; G93.41 Metabolic encephalopathy; E87.0 Hyperosmolality and hypernatremia; N39.0 Urinary tract infection, site not specified; J44.1 Chronic obstructive pulmonary disease with (acute) exacerbation; E87.3 Alkalosis; E87.2 Acidosis; I13.0 Hypertensive heart and chronic kidney disease with heart failure and stage 1 through stage 4 chronic kidney disease, or unspecified chronic kidney disease; Z68.41 Body mass index [BMI] 40.0-44.9, adult; I50.813 Acute on chronic right heart failure; E87.5 Hyperkalemia; E87.8 Other disorders of electrolyte and fluid balance, not elsewhere classified; G47.33 Obstructive sleep apnea (adult) (pediatric); D64.9 Anemia, unspecified; G89.29 Other chronic pain; K59.09 Other constipation; M19.90 Unspecified osteoarthritis, unspecified site; E11.22 Type 2 diabetes mellitus with diabetic chronic kidney disease; I48.0 Paroxysmal atrial fibrillation; E66.01 Morbid (severe) obesity due to excess calories; N18.3 Chronic kidney disease, stage 3 (moderate); E11.40 Type 2 diabetes mellitus with diabetic neuropathy, unspecified; E11.65 Type 2 diabetes mellitus with hyperglycemia; I27.81 Cor pulmonale (chronic); I25.10 Atherosclerotic heart disease of native coronary artery without angina pectoris; K21.9 Gastro-esophageal reflux disease without esophagitis; Z79.01 Long term (current) use of anticoagulants; Z79.4 Long term (current) use of insulin; Z79.51 Long term (current) use of inhaled steroids; Z83.3 Family history of diabetes mellitus; I25.2 Old myocardial infarction; Z86.73 Personal history of transient ischemic attack (TIA), and cerebral infarction without residual deficits; Z87.01 Personal history of pneumonia (recurrent); Z87.11 Personal history of peptic ulcer disease; Z95.1 Presence of aortocoronary bypass graft; Z95.2 Presence of prosthetic heart valve; Z99.81 Dependence on supplemental oxygen; Z88.2 Allergy status to sulfonamides; Z88.1 Allergy status to other antibiotic agents; Z91.041 Radiographic dye allergy status; Z86.718 Personal history of other venous thrombosis and embolism; Z90.49 Acquired absence of other specified parts of digestive tract; Z98.891 History of uterine scar from previous surgery; Z79.899 Other long term (current) drug therapy
CPT/HCPCS: 36415; 36600; 70450; 71045; 72080; 80048; 80053; 81001; 82140; 82803; 82948; 83605; 83735; 83880; 84100; 84145; 84484; 85018; 85025; 85610; 85730; 87040; 87081; 87088; 87502; 87503; 93005; 94640; 94660; 94760; 96365; 96366; 96368; 96375; 97110; 97116; 97161; 97530; 99291; G0378; J0610; J0696; J1644; J1815; J1940; J2060; J2543; J3370; J7030; J7060; J7512; J7626

== ENCOUNTER 2019-06-16 13:37 | Inpatient (IN) | payer MEDICARE, MEDICAID ==
[~2019-06-16] VITALS: Ht 165.1 cm; Wt 131.0 kg
[~2019-06-16 13:37] MED LIST changes: +ACET-2119 PO; +AMLO10TA PO; +APIX5TAB3 PO; +ASCO500C15 PO; -BUDE10.2 INH; +CARV-50 PO; -CARV12.5 PO; -CELE-85 PO; -DOCU-28 PO; -FEXO-62 PO; +FEXO180T94 PO; +FLUT1BLS3 IH; +FURO-149 PO; -FURO40TA4 PO; +GABA-530 PO; -GABA-532 PO; -GLIM4TAB PO; +HYDR-3972 PO; -HYDR-4353 PO; +IPRA3AMP31 IH; +LACTC PO; -LANTUS SUBCUT; -LOPE2CAP PO; -LOSA1TAB9 PO; +MAGN400O6 PO; +MULT-1085 PO; -PANT-47 PO; +PANT40TA4 PO; -POTA8TAB8 PO; +PRED20TA PO
[2019-06-16] MEDS ORDERED: normal saline 1000ML IV soln IVB ONE (14:25)
[2019-06-16 14:55] LABS: BASOPHILS # (AUTO) 0.1 X10'3 (0-0.2); BASOPHILS % (AUTO) 0.9 % (0-1); EOSINOPHILS # (AUTO) 0.4 X10'3 (0-0.9); EOSINOPHILS % (AUTO) 4.5 % (0-6); HEMATOCRIT 28.8 % (35.0-45.0); HEMOGLOBIN 9.2 g/dl (12.0-16.0); LYMPHOCYTES % (AUTO) 11.5 % (21-51); MEAN CORPUSCULAR HEMOGLOBIN 30.1 PG (27.0-31.0); MEAN CORPUSCULAR HGB CONC 31.9 g/dL (33.0-36.5); MEAN CORPUSCULAR VOLUME 94.1 FL (78-98); MEAN PLATELET VOLUME 8.9 FL (7.4-10.4); MONOCYTES % (AUTO) 11.5 % (2-12); NEUTROPHILS # (AUTO) 6.5 X10'3 (1.8-7.7); NEUTROPHILS % (AUTO) 71.6 % (42-75); PLATELET COUNT 143 X10'3 (140-440); RED BLOOD COUNT 3.06 X10'6 (4.20-5.60); RED CELL DISTRIBUTION WIDTH 17.1 % (11.5-14.5)
[2019-06-16 14:56] LABS: CLARITY,URINE CLOUDY (Clear); COLOR,URINE YELLOW (Yellow); GLUCOSE, URINE NEGATIVE (Neg); KETONES,URINE NEGATIVE (Neg); LEUKOCYTE ESTERASE ,URINE SMALL (Neg); NITRITES, URINE POSITIVE (Neg); OCCULT BLOOD,URINE TRACE-INTACT (Neg); PROTEIN,URINE TRACE mg/dl (Neg); UROBILINOGEN,URINE 0.2 E.U/dL (0.2-1.0)
[2019-06-16 14:57] LABS: UA COLLECTION TYPE STRAIGHT CATH
[2019-06-16 15:03] LABS: BACTERIA,URINE 3+ /HPF (Neg); SQUAMOUS EPITHELIAL CELL,UR MANY /LPF (FEW); WBC CLUMPS,URINE MANY /HPF (NEGATIVE); WBC,URINE TNTC /HPF (0-4)
[2019-06-16 15:09] LABS: ALANINE AMINOTRANSFERASE 13 U/L (12-78); ALBUMIN/GLOBULIN RATIO 0.7 (1.1-1.5); ALKALINE PHOSPHATASE 69 IU/L (46-116); ANION GAP 3 (8-16); ASPARTATE AMINO TRANSFERASE 18 U/L (10-37); BILIRUBIN,TOTAL 0.4 MG/DL (0.1-1.0); BLOOD UREA NITROGEN 30 MG/DL (7-18); BUN/CREATININE RATIO 17.8 (6.6-38.0); CALCIUM 9.1 MG/DL (8.5-10.1); CHLORIDE 104 MMOL/L (99-107); CREATININE 1.69 MG/DL (0.40-0.90); GLUCOSE 148 MG/DL (70-104); POTASSIUM 4.7 MMOL/L (3.5-5.1); SODIUM 141 MMOL/L (135-145); TOTAL CARBON DIOXIDE 33.7 MMOL/L (24-32); TOTAL PROTEIN 7.1 G/DL (6.4-8.2); eGFR 29 ML/MIN
[2019-06-16] MEDS ORDERED: CefTRIAXone 2gm/D5W 50ml 50 ML IV ONE (15:10)
[2019-06-16 15:16] LABS: MAGNESIUM 2.3 MG/DL (1.5-2.4)
[2019-06-16] MEDS ORDERED: RIVA20TA PO (16:24)
[2019-06-16] MEDS ORDERED: BUDE0.5A11 NEB (16:24)
[2019-06-16] MEDS ORDERED: GABA100C PO (16:25)
[2019-06-16] MEDS ORDERED: INSU100V9 SQ (16:26)
[2019-06-16] MEDS ORDERED: MECL-111 PO (16:26)
[2019-06-16] MEDS ORDERED: BENA20TA76 PO (16:26)
[2019-06-16] MEDS ORDERED: LOSA1TAB41 PO (16:26)
--- NOTE | 2019-06-16 17:03 | NUR ---
Wound photos being taken at this time. Hospitalist at bedside and observed wound on the right lower extremity.
[2019-06-16] MEDS ORDERED: nitroGLYCERIN 0.4mg SUBLingual tab SL PRN (18:45)
[2019-06-16] MEDS ORDERED: acetaminophen 325mg tablet PO PRN ×2 (18:45→18:50)
[2019-06-16] MEDS ORDERED: ondansetron/PF 4mg/2ml inj IV PRN (18:50)
[2019-06-16] MEDS ORDERED: magnesium 2GM in 50ml NS 50 ML IV PRN (18:50)
[2019-06-16] MEDS ORDERED: magnesium Cl slow-release 64mg tablet PO PRN (18:50)
[2019-06-16] MEDS ORDERED: potassium CL 10mEq/100ml bag 100 ML IV PRN ×2 (18:50)
[2019-06-16] MEDS ORDERED: magnesium 4gm in 100ml NS 100 ML IV PRN (18:50)
[2019-06-16] MEDS ORDERED: ipratropium/albuterol 3ml nebule NEB PRN ×2 (18:50)
[2019-06-16] MEDS ORDERED: MESSAGE TO PHARMACY PO ONE (18:50)
[2019-06-16] MEDS ORDERED: dextrose 50%-water 50ml dispensing syringe IV PRN ×2 (18:50)
[2019-06-16] MEDS ORDERED: glucagon, human recombinant 1mg kit SUBCUT PRN (18:50)
[2019-06-16] MEDS ORDERED: dextrose ORAL solution 15 GM/59 ML bottle PO PRN ×2 (18:50)
[2019-06-16] MEDS ORDERED: potassium Cl 20 mEq SR tablet PO PRN ×2 (18:50)
[2019-06-16 19:17] LABS: HEMOGLOBIN A1C 6.5 % (4.5-6.2)
[2019-06-16] MEDS: budesonide 0.5mg/2ml UD nebule IH SCH (19:52)
[2019-06-16] MEDS: albuterol 2.5 MG/3 ML nebule NEB PRN (19:52)
[2019-06-16 20:00] VITALS: BP 115/77
[2019-06-16] MEDS ORDERED: budesonide 0.5mg/2ml UD nebule IH SCH (20:00)
[2019-06-16] MEDS ORDERED: HYDROcodone/acetaminophen 10/325mg tab PO PRN (20:00)
[2019-06-16] MEDS: insulin glargine (Lantus) pen - multi-dose SQ SCH (21:00)
[2019-06-16] MEDS: furosemide 40mg tablet PO SCH (21:21)
[2019-06-16] MEDS: ascorbic acid 500mg tablet PO SCH (21:21)
[2019-06-16] MEDS: pantoprazole 40mg Tablet.DR PO SCH (21:22)
[2019-06-16] MEDS: carVEDilol 12.5mg tablet PO SCH (21:23)
[2019-06-16] MEDS: ferrous sulfate 325mg tablet PO SCH (21:24)
[2019-06-16] MEDS: HYDROcodone/acetaminophen 5mg/325mg tablet PO PRN (22:04)
[2019-06-17] VITALS: BP 131/68
[2019-06-17] MEDS: HYDROcodone/acetaminophen 5mg/325mg tablet PO PRN ×3 (02:57→21:52)
[2019-06-17 03:08] LABS: BASOPHILS # (AUTO) 0.1 X10'3 (0-0.2); EOSINOPHILS # (AUTO) 0.2 X10'3 (0-0.9); EOSINOPHILS % (AUTO) 2.8 % (0-6); HEMATOCRIT 26.8 % (35.0-45.0); HEMOGLOBIN 8.6 g/dl (12.0-16.0); LYMPHOCYTES # (AUTO) 0.9 X10'3 (1.1-4.8); LYMPHOCYTES % (AUTO) 11.2 % (21-51); MEAN CORPUSCULAR HEMOGLOBIN 29.8 PG (27.0-31.0); MEAN CORPUSCULAR HGB CONC 32.1 g/dL (33.0-36.5); MEAN CORPUSCULAR VOLUME 92.9 FL (78-98); MEAN PLATELET VOLUME 8.6 FL (7.4-10.4); MONOCYTES # (AUTO) 0.6 X10'3 (0-0.9); MONOCYTES % (AUTO) 7.2 % (2-12); NEUTROPHILS # (AUTO) 6.2 X10'3 (1.8-7.7); NEUTROPHILS % (AUTO) 77.8 % (42-75); PLATELET COUNT 136 X10'3 (140-440); RED BLOOD COUNT 2.88 X10'6 (4.20-5.60); RED CELL DISTRIBUTION WIDTH 17.5 % (11.5-14.5)
[2019-06-17 03:25] LABS: ANION GAP 2 (8-16); BLOOD UREA NITROGEN 26 MG/DL (7-18); BUN/CREATININE RATIO 17.2 (6.6-38.0); CALCIUM 8.7 MG/DL (8.5-10.1); CHLORIDE 107 MMOL/L (99-107); CREATININE 1.51 MG/DL (0.40-0.90); GLUCOSE 227 MG/DL (70-104); MAGNESIUM 1.9 MG/DL (1.5-2.4); POTASSIUM 5.1 MMOL/L (3.5-5.1); SODIUM 143 MMOL/L (135-145); TROPONIN I 0.13 NG/ML (0.0-0.05); eGFR 33 ML/MIN
--- NOTE | 2019-06-17 07:14 | NUR ---
Patient in room EDD 351. I have received report from Pat RN and had the opportunity to ask questions and assume patient care.
--- NOTE | 2019-06-17 07:14 | NUR ---
Patient in room EDD 351. I have received report from Pat RN and had the opportunity to ask questions and assume patient care.
[2019-06-17] MEDS: insulin glargine (Lantus) pen - multi-dose SQ SCH ×2 (08:00→21:50)
[2019-06-17] MEDS: K and/or MAG REPLACEMENT MC SCH (08:00)
[2019-06-17 08:07] VITALS: BP 138/104
[2019-06-17] MEDS: pantoprazole 40mg Tablet.DR PO SCH ×2 (08:39→20:26)
[2019-06-17] MEDS: furosemide 40mg tablet PO SCH ×2 (08:39→20:26)
[2019-06-17] MEDS: loratadine 10mg tablet PO SCH (08:40)
[2019-06-17] MEDS: ascorbic acid 500mg tablet PO SCH ×2 (08:40→20:21)
[2019-06-17] MEDS: rivaroxaban 20mg tablet PO SCH (08:41)
[2019-06-17] MEDS: carVEDilol 12.5mg tablet PO SCH ×2 (08:42→20:25)
[2019-06-17] MEDS: lisinopril 20mg tablet PO SCH (08:42)
[2019-06-17] MEDS: ferrous sulfate 325mg tablet PO SCH ×2 (08:43→20:26)
[2019-06-17] MEDS: multivitamins, therapeutics tablet PO SCH (08:44)
[2019-06-17] MEDS: gabapentin 100mg capsule PO SCH (08:44)
[2019-06-17] MEDS: budesonide 0.5mg/2ml UD nebule IH SCH ×2 (08:49→20:07)
[2019-06-17] MEDS: albuterol 2.5 MG/3 ML nebule NEB PRN ×2 (08:49→20:07)
[2019-06-17] MEDS ORDERED: FLU VACC QS 2019-20 (6 MOS UP) 60 MCG/0.5 ML VIAL IMVAC ONE (10:00)
[2019-06-17] MEDS: vitamin D (cholecalciferol) 1,000 unit tablet PO SCH (10:00)
[2019-06-17 11:00] VITALS: BP 109/57
--- NOTE | 2019-06-17 14:12 | NUR ---
Pt with low Thomas of 12. Per H&P pt with right leg ulcer. Wound care has been consulted, pending assessment. Pt currently on heart healthy CHO controlled diet documented with 100% PO intake. D/w dietary to send double protein BIDLD for satiety and skin integrity. Will continue to follow and monitor need for additional nutrient needs pending [facility] assessment. Addendum: 06/17/19 at [address] Amended: Links added.
[2019-06-17] MEDS: insulin Lispro (HumaLOG) vial - multi-dose SQ SCH ×2 (14:13→19:40)
[2019-06-17] MEDS: CefTRIAXone/D5W-Rocephin 1gm 50 ML IV SCH (15:40)
--- NOTE | 2019-06-17 16:00 | NUR ---
WOUND INFECTION EDUCATION PROVIDED BY WOUND CARE 1. Patient instructed to call their primary doctor, or go the ED immediately if any of the following symptoms occur: * Increased pain in wound * Increase in drainage from the wound * Redness in the skin surrounding the wound * Warmth in the skin surrounding the wound * Bleeding from the wound * Temperature of 101 or greater 2. If any of these occur while in the hospital tell a nurse immediately. PRESSURE ULCER EDUCATION: DEFINITION: A pressure ulcer is an area of skin that breaks down when you stay in one position too long. The constant pressure against the skin reduces the blood flow to that area and the affected tissue dies. CAUSES: "Being bedridden or in a wheelchair "Fragile skin "Having a chronic condition, such as diabetes or vascular disease "Inability to move certain parts of your body without assistance "Older age "Incontinence of urine or stool SYMPTOMS: "A reddened area that DOES NOT turn white when pressed on - this can be the beginning of a pressure ulcer "A blister, deep sore or a crater - these can be advanced pressure ulcers FIRST AID: "Relieve the pressure on this area "Keep the area clean and dry "Call your primary doctor if you see any of the above symptoms "DO NOT massage the area "DO NOT use a donut shaped or ring shaped pillow- these actually interfere with the blood flow and cause complications PREVENTION: "Check for pressure ulcers everyday "Change position at least every two hours to relieve pressure "Use items that help relieve pressure- pillows, sheepskin, foam padding, and powders. "Keep skin clean and dry "Eat healthy well balanced meals "Exercise daily IF YOU SEE ANY OF THESE SYMPTOMS WHILE IN THE HOSPITAL - TELL YOUR NURSE IMMEDIATELY. IF YOU SEE ANY OF THESE SYMPTOMS WHILE AT HOME OR HAVE ANY QUESTIONS OR CONCERNS ABOUT PRESSURE ULCERS - CALL YOUR PRIMARY DOCTOR IMMEDIATELY. Addendum: 06/17/19 at 1600 by Vainey Rosas RN Amended: Links added.
[2019-06-17 18:00] VITALS: BP 145/71
--- NOTE | 2019-06-17 18:43 | NUR ---
received report from LINH Kraus, pt currently in bed eating dinner. will wait for pt to finish to cover blood sugar
[2019-06-17] MEDS: nystatin 15 GM powder TP SCH (20:20)
[2019-06-18] VITALS: BP 160/75
[2019-06-18 04:46] LABS: BASOPHILS # (AUTO) 0.1 X10'3 (0-0.2); BASOPHILS % (AUTO) 0.7 % (0-1); EOSINOPHILS # (AUTO) 0.4 X10'3 (0-0.9); EOSINOPHILS % (AUTO) 4.1 % (0-6); HEMATOCRIT 28.8 % (35.0-45.0); HEMOGLOBIN 9.2 g/dl (12.0-16.0); LYMPHOCYTES % (AUTO) 10.6 % (21-51); MEAN CORPUSCULAR HEMOGLOBIN 29.6 PG (27.0-31.0); MEAN CORPUSCULAR VOLUME 92.5 FL (78-98); MEAN PLATELET VOLUME 8.5 FL (7.4-10.4); MONOCYTES # (AUTO) 0.8 X10'3 (0-0.9); MONOCYTES % (AUTO) 8.5 % (2-12); NEUTROPHILS % (AUTO) 76.1 % (42-75); PLATELET COUNT 139 X10'3 (140-440); RED BLOOD COUNT 3.11 X10'6 (4.20-5.60); WHITE BLOOD COUNT 9.2 X10'3 (4.5-11.0)
[2019-06-18 05:03] LABS: ANION GAP 1 (8-16); BLOOD UREA NITROGEN 21 MG/DL (7-18); BUN/CREATININE RATIO 17.4 (6.6-38.0); CALCIUM 9.3 MG/DL (8.5-10.1); CHLORIDE 102 MMOL/L (99-107); CREATININE 1.21 MG/DL (0.40-0.90); GLUCOSE 207 MG/DL (70-104); MAGNESIUM 1.9 MG/DL (1.5-2.4); POTASSIUM 4.7 MMOL/L (3.5-5.1); SODIUM 141 MMOL/L (135-145); TOTAL CARBON DIOXIDE 37.7 MMOL/L (24-32); eGFR 43 ML/MIN
--- NOTE | 2019-06-18 06:31 | NUR ---
report given to LINH Hanley
--- NOTE | 2019-06-18 06:43 | NUR ---
Patient in room EDD 351. I have received report from dre roper and had the opportunity to ask questions and assume patient care.
[2019-06-18 07:00] VITALS: BP 141/67
[2019-06-18] MEDS: K and/or MAG REPLACEMENT MC SCH (07:06)
[2019-06-18] MEDS: insulin glargine (Lantus) pen - multi-dose SQ SCH ×2 (07:08→21:52)
[2019-06-18] MEDS: ferrous sulfate 325mg tablet PO SCH ×2 (07:23→20:52)
[2019-06-18] MEDS: lisinopril 20mg tablet PO SCH (07:24)
[2019-06-18] MEDS: furosemide 40mg tablet PO SCH ×2 (07:24→20:52)
[2019-06-18] MEDS: multivitamins, therapeutics tablet PO SCH (07:24)
[2019-06-18] MEDS: ascorbic acid 500mg tablet PO SCH ×2 (07:24→20:51)
[2019-06-18] MEDS: vitamin D (cholecalciferol) 1,000 unit tablet PO SCH (07:24)
[2019-06-18] MEDS: rivaroxaban 20mg tablet PO SCH (07:25)
[2019-06-18] MEDS: gabapentin 100mg capsule PO SCH (07:25)
[2019-06-18] MEDS: loratadine 10mg tablet PO SCH (07:25)
[2019-06-18] MEDS: pantoprazole 40mg Tablet.DR PO SCH ×2 (07:25→20:52)
[2019-06-18] MEDS: HYDROcodone/acetaminophen 5mg/325mg tablet PO PRN ×3 (07:26→20:59)
[2019-06-18] MEDS: carVEDilol 12.5mg tablet PO SCH ×2 (07:27→20:52)
[2019-06-18] MEDS: nystatin 15 GM powder TP SCH ×2 (07:27→20:55)
[2019-06-18] MEDS: CefTRIAXone/D5W-Rocephin 1gm 50 ML IV SCH (07:27)
[2019-06-18] MEDS: budesonide 0.5mg/2ml UD nebule IH SCH ×2 (08:50→19:11)
[2019-06-18] MEDS: insulin Lispro (HumaLOG) vial - multi-dose SQ SCH ×3 (09:28→19:27)
[2019-06-18] MEDS: morphine 2 MG/ML inj. syringe IV PRN ×2 (10:14→23:01)
[2019-06-18 11:00] VITALS: BP 152/75
--- NOTE | 2019-06-18 17:13 | NUR ---
PAGER ID: [phone] MESSAGE: SHAYNE HIGGINS. REMINDER TO ENTER CODE STATUS. [facility] [place] [phone]
[2019-06-18 18:00] VITALS: BP 157/86
[2019-06-18 18:02] VITALS: BP 152/75
[2019-06-18] MEDS: lactobacillus rhamnosus 10,000 MMU CELLS/CAPSULE PO SCH (20:52)
[2019-06-19] VITALS: BP 143/70
[2019-06-19 03:54] LABS: BASOPHILS # (AUTO) 0.1 X10'3 (0-0.2); BASOPHILS % (AUTO) 0.7 % (0-1); EOSINOPHILS # (AUTO) 0.4 X10'3 (0-0.9); EOSINOPHILS % (AUTO) 5.3 % (0-6); HEMATOCRIT 27.2 % (35.0-45.0); HEMOGLOBIN 8.7 g/dl (12.0-16.0); LYMPHOCYTES # (AUTO) 1.1 X10'3 (1.1-4.8); LYMPHOCYTES % (AUTO) 13.2 % (21-51); MEAN CORPUSCULAR HEMOGLOBIN 29.8 PG (27.0-31.0); MEAN CORPUSCULAR VOLUME 92.9 FL (78-98); MEAN PLATELET VOLUME 8.1 FL (7.4-10.4); MONOCYTES # (AUTO) 0.7 X10'3 (0-0.9); MONOCYTES % (AUTO) 8.8 % (2-12); NEUTROPHILS # (AUTO) 6.1 X10'3 (1.8-7.7); PLATELET COUNT 131 X10'3 (140-440); RED BLOOD COUNT 2.93 X10'6 (4.20-5.60); RED CELL DISTRIBUTION WIDTH 17.1 % (11.5-14.5); WHITE BLOOD COUNT 8.4 X10'3 (4.5-11.0)
[2019-06-19 04:01] LABS: ALBUMIN 2.8 G/DL (3.4-5.0); ANION GAP -1 (8-16); BLOOD UREA NITROGEN 18 MG/DL (7-18); BUN/CREATININE RATIO 15.9 (6.6-38.0); CALCIUM 9.4 MG/DL (8.5-10.1); CHLORIDE 100 MMOL/L (99-107); CREATININE 1.13 MG/DL (0.40-0.90); GLUCOSE 180 MG/DL (70-104); MAGNESIUM 1.7 MG/DL (1.5-2.4); POTASSIUM 4.4 MMOL/L (3.5-5.1); SODIUM 142 MMOL/L (135-145); eGFR 47 ML/MIN
[2019-06-19 04:25] LABS: TOTAL CARBON DIOXIDE 42.9 MMOL/L (24-32)
--- NOTE | 2019-06-19 04:41 | NUR ---
Dr Prieto notified of 42.9 carbon dioxide. no new orders
[2019-06-19] MEDS: HYDROcodone/acetaminophen 5mg/325mg tablet PO PRN ×4 (05:12→22:30)
[2019-06-19 05:26] VITALS: BP 149/67
--- NOTE | 2019-06-19 06:34 | NUR ---
report given to LINH Riddle
--- NOTE | 2019-06-19 06:34 | NUR ---
Patient in room EDD 351. I have received report from LINH Rand and had the opportunity to ask questions and assume patient care.
[2019-06-19 06:53] VITALS: BP 163/61
[2019-06-19] MEDS: K and/or MAG REPLACEMENT MC SCH (08:00)
[2019-06-19] MEDS: gabapentin 100mg capsule PO SCH (08:05)
[2019-06-19] MEDS: CefTRIAXone/D5W-Rocephin 1gm 50 ML IV SCH (08:05)
[2019-06-19] MEDS: ascorbic acid 500mg tablet PO SCH ×2 (08:05→19:26)
[2019-06-19] MEDS: loratadine 10mg tablet PO SCH (08:06)
[2019-06-19] MEDS: lactobacillus rhamnosus 10,000 MMU CELLS/CAPSULE PO SCH ×2 (08:06→19:26)
[2019-06-19] MEDS: furosemide 40mg tablet PO SCH (08:06)
[2019-06-19] MEDS: ferrous sulfate 325mg tablet PO SCH ×2 (08:06→19:26)
[2019-06-19] MEDS: vitamin D (cholecalciferol) 1,000 unit tablet PO SCH (08:06)
[2019-06-19] MEDS: rivaroxaban 20mg tablet PO SCH (08:06)
[2019-06-19] MEDS: pantoprazole 40mg Tablet.DR PO SCH ×2 (08:06→19:26)
[2019-06-19] MEDS: carVEDilol 12.5mg tablet PO SCH ×2 (08:06→19:31)
[2019-06-19] MEDS: multivitamins, therapeutics tablet PO SCH (08:06)
[2019-06-19] MEDS: lisinopril 20mg tablet PO SCH (08:08)
[2019-06-19] MEDS: nystatin 15 GM powder TP SCH ×2 (08:08→19:53)
[2019-06-19] MEDS: budesonide 0.5mg/2ml UD nebule IH SCH ×2 (08:32→19:34)
[2019-06-19] MEDS: insulin Lispro (HumaLOG) vial - multi-dose SQ SCH ×3 (08:44→19:25)
[2019-06-19 11:41] VITALS: BP 141/62
[2019-06-19 18:00] VITALS: BP 151/72
--- NOTE | 2019-06-19 18:20 | NUR ---
Patient in room EDD 351. I have received report from LINH Riddle and had the opportunity to ask questions and assume patient care.
--- NOTE | 2019-06-19 18:35 | NUR ---
Problems reprioritized. Patient report given, questions answered & plan of care reviewed with LINH Ricks and LINH Hubbard.
[2019-06-19] MEDS: albuterol 2.5 MG/3 ML nebule NEB PRN (19:34)
[2019-06-19] MEDS: insulin glargine (Lantus) pen - multi-dose SQ SCH (21:57)
[2019-06-20 00:44] VITALS: BP 125/58
[2019-06-20 04:19] LABS: BASOPHILS # (AUTO) 0.1 X10'3 (0-0.2); EOSINOPHILS # (AUTO) 0.5 X10'3 (0-0.9); EOSINOPHILS % (AUTO) 6.7 % (0-6); HEMATOCRIT 26.9 % (35.0-45.0); HEMOGLOBIN 8.6 g/dl (12.0-16.0); LYMPHOCYTES # (AUTO) 1.1 X10'3 (1.1-4.8); LYMPHOCYTES % (AUTO) 14.4 % (21-51); MEAN CORPUSCULAR HEMOGLOBIN 29.7 PG (27.0-31.0); MEAN CORPUSCULAR HGB CONC 32.1 g/dL (33.0-36.5); MEAN CORPUSCULAR VOLUME 92.8 FL (78-98); MEAN PLATELET VOLUME 8.2 FL (7.4-10.4); MONOCYTES # (AUTO) 0.8 X10'3 (0-0.9); MONOCYTES % (AUTO) 10.2 % (2-12); NEUTROPHILS # (AUTO) 5.2 X10'3 (1.8-7.7); NEUTROPHILS % (AUTO) 67.7 % (42-75); PLATELET COUNT 121 X10'3 (140-440); RED CELL DISTRIBUTION WIDTH 17.1 % (11.5-14.5); WHITE BLOOD COUNT 7.7 X10'3 (4.5-11.0)
[2019-06-20 04:30] LABS: ALBUMIN 2.8 G/DL (3.4-5.0); ANION GAP -2 (8-16); BLOOD UREA NITROGEN 22 MG/DL (7-18); BUN/CREATININE RATIO 20.6 (6.6-38.0); CALCIUM 9.5 MG/DL (8.5-10.1); CHLORIDE 100 MMOL/L (99-107); CREATININE 1.07 MG/DL (0.40-0.90); GLUCOSE 148 MG/DL (70-104); MAGNESIUM 1.8 MG/DL (1.5-2.4); POTASSIUM 4.3 MMOL/L (3.5-5.1); SODIUM 142 MMOL/L (135-145); eGFR 50 ML/MIN
[2019-06-20 04:33] LABS: TOTAL CARBON DIOXIDE 44.4 MMOL/L (24-32)
[2019-06-20] MEDS: HYDROcodone/acetaminophen 5mg/325mg tablet PO PRN ×4 (04:52→19:27)
--- NOTE | 2019-06-20 06:35 | NUR ---
Problems reprioritized. Patient report given, questions answered & plan of care reviewed with LINH Colvin.
[2019-06-20] MEDS: budesonide 0.5mg/2ml UD nebule IH SCH ×2 (07:57→19:33)
[2019-06-20 08:00] VITALS: BP 154/81
[2019-06-20] MEDS: K and/or MAG REPLACEMENT MC SCH (08:00)
[2019-06-20] MEDS: vitamin D (cholecalciferol) 1,000 unit tablet PO SCH (08:32)
[2019-06-20] MEDS: pantoprazole 40mg Tablet.DR PO SCH ×2 (08:32→19:28)
[2019-06-20] MEDS: lactobacillus rhamnosus 10,000 MMU CELLS/CAPSULE PO SCH ×2 (08:32→19:29)
[2019-06-20] MEDS: multivitamins, therapeutics tablet PO SCH (08:32)
[2019-06-20] MEDS: gabapentin 100mg capsule PO SCH (08:32)
[2019-06-20] MEDS: furosemide 40mg tablet PO SCH (08:32)
[2019-06-20] MEDS: rivaroxaban 20mg tablet PO SCH (08:33)
[2019-06-20] MEDS: loratadine 10mg tablet PO SCH (08:33)
[2019-06-20] MEDS: ferrous sulfate 325mg tablet PO SCH ×2 (08:33→19:27)
[2019-06-20] MEDS: carVEDilol 12.5mg tablet PO SCH ×2 (08:33→19:28)
[2019-06-20] MEDS: ascorbic acid 500mg tablet PO SCH ×2 (08:33→19:28)
[2019-06-20] MEDS: lisinopril 20mg tablet PO SCH (08:34)
[2019-06-20] MEDS: CefTRIAXone/D5W-Rocephin 1gm 50 ML IV SCH (08:35)
[2019-06-20] MEDS: nystatin 15 GM powder TP SCH ×2 (08:35→19:29)
[2019-06-20] MEDS: insulin Lispro (HumaLOG) vial - multi-dose SQ SCH ×3 (08:52→19:26)
--- NOTE | 2019-06-20 10:44 | NUR ---
Student documentation: I have reviewed and agree with all interventions, assessments performed and documented by SN Wandy.
[2019-06-20 11:16] LABS: ABG BASE EXCESS 19.6 mmol/L (-2.0-3.0); ABG HCO3 47.5 mmol/L (22.0-26.0); ABG OXYGEN SATURATION 80.5 % (95-98); ABG PCO2 (T) 79.1 mmHg (35.0-45.0); ABG PH (T) 7.396 (7.350-7.450); ABG PO2 (T) 45.8 mmHg (83-108); ALLEN'S TEST Positive; FCOHb 0.7 % (0.5-1.5); FLOW 4 L/min; FMetHb 0.1 % (0.3-1.12); FO2Hb 79.9 % (94-100); TOTAL HEMOGLOBIN 9.5 G/dl (12.0-16.0)
[2019-06-20 12:22] VITALS: BP 146/82
[2019-06-20] MEDS ORDERED: acetaZOLAMIDE 250mg tablet PO ONE (13:10)
--- NOTE | 2019-06-20 18:09 | NUR ---
Patient in room EDD 351. I have received report from LINH Colvin and had the opportunity to ask questions and assume patient care.
[2019-06-20 18:15] VITALS: BP 131/62
--- NOTE | 2019-06-20 18:29 | NUR ---
Problems reprioritized. Patient report given, questions answered & plan of care reviewed with LINH Ricks.
[2019-06-20] MEDS: acetaZOLAMIDE 250mg tablet PO SCH (19:27)
[2019-06-20] MEDS: insulin glargine (Lantus) pen - multi-dose SQ SCH (21:48)
[2019-06-21] VITALS (8 sets, daily range): BP systolic 104–147; BP diastolic 43–76
[2019-06-21 04:46] LABS: BASOPHILS # (AUTO) 0.1 X10'3 (0-0.2); BASOPHILS % (AUTO) 1.2 % (0-1); EOSINOPHILS # (AUTO) 0.5 X10'3 (0-0.9); EOSINOPHILS % (AUTO) 6.8 % (0-6); HEMATOCRIT 26.6 % (35.0-45.0); HEMOGLOBIN 8.5 g/dl (12.0-16.0); LYMPHOCYTES # (AUTO) 1.1 X10'3 (1.1-4.8); LYMPHOCYTES % (AUTO) 15.2 % (21-51); MEAN CORPUSCULAR HEMOGLOBIN 29.7 PG (27.0-31.0); MEAN CORPUSCULAR HGB CONC 31.8 g/dL (33.0-36.5); MEAN CORPUSCULAR VOLUME 93.4 FL (78-98); MEAN PLATELET VOLUME 8.8 FL (7.4-10.4); MONOCYTES # (AUTO) 0.8 X10'3 (0-0.9); MONOCYTES % (AUTO) 10.6 % (2-12); NEUTROPHILS # (AUTO) 4.9 X10'3 (1.8-7.7); NEUTROPHILS % (AUTO) 66.2 % (42-75); PLATELET COUNT 123 X10'3 (140-440); RED BLOOD COUNT 2.85 X10'6 (4.20-5.60); RED CELL DISTRIBUTION WIDTH 17.1 % (11.5-14.5); WHITE BLOOD COUNT 7.4 X10'3 (4.5-11.0)
[2019-06-21 05:02] LABS: ALBUMIN 2.7 G/DL (3.4-5.0); BLOOD UREA NITROGEN 26 MG/DL (7-18); BUN/CREATININE RATIO 22.2 (6.6-38.0); CALCIUM 9.9 MG/DL (8.5-10.1); CHLORIDE 99 MMOL/L (99-107); CREATININE 1.17 MG/DL (0.40-0.90); GLUCOSE 112 MG/DL (70-104); MAGNESIUM 2.1 MG/DL (1.5-2.4); POTASSIUM 4.2 MMOL/L (3.5-5.1); SODIUM 139 MMOL/L (135-145); eGFR 45 ML/MIN
[2019-06-21 05:19] LABS: ANION GAP -9 (8-16); TOTAL CARBON DIOXIDE 48.6 MMOL/L (24-32)
--- NOTE | 2019-06-21 06:50 | NUR ---
Problems reprioritized. Patient report given, questions answered & plan of care reviewed with Liza Wang RN.
[2019-06-21] MEDS: budesonide 0.5mg/2ml UD nebule IH SCH ×2 (07:14→20:30)
[2019-06-21] MEDS: acetaZOLAMIDE 250mg tablet PO SCH ×2 (07:37→20:58)
[2019-06-21] MEDS: gabapentin 100mg capsule PO SCH (07:37)
[2019-06-21] MEDS: loratadine 10mg tablet PO SCH (07:37)
[2019-06-21] MEDS: pantoprazole 40mg Tablet.DR PO SCH ×2 (07:37→20:59)
[2019-06-21] MEDS: rivaroxaban 20mg tablet PO SCH (07:37)
[2019-06-21] MEDS: vitamin D (cholecalciferol) 1,000 unit tablet PO SCH (07:37)
[2019-06-21] MEDS: furosemide 40mg tablet PO SCH (07:37)
[2019-06-21] MEDS: lactobacillus rhamnosus 10,000 MMU CELLS/CAPSULE PO SCH ×2 (07:37→20:59)
[2019-06-21] MEDS: multivitamins, therapeutics tablet PO SCH (07:37)
[2019-06-21] MEDS: lisinopril 20mg tablet PO SCH (07:38)
[2019-06-21] MEDS: ferrous sulfate 325mg tablet PO SCH ×2 (07:39→20:59)
[2019-06-21] MEDS: ascorbic acid 500mg tablet PO SCH ×2 (07:39→20:59)
[2019-06-21] MEDS: carVEDilol 12.5mg tablet PO SCH ×2 (07:39→20:59)
[2019-06-21] MEDS: HYDROcodone/acetaminophen 5mg/325mg tablet PO PRN ×2 (07:39→15:32)
[2019-06-21] MEDS: CefTRIAXone/D5W-Rocephin 1gm 50 ML IV SCH (07:39)
[2019-06-21] MEDS: K and/or MAG REPLACEMENT MC SCH (07:40)
[2019-06-21 08:10] LABS: ABG BASE EXCESS 11.7 mmol/L (-2.0-3.0); ABG HCO3 39.1 mmol/L (22.0-26.0); ABG PCO2 (T) 69.5 mmHg (35.0-45.0); ABG PH (T) 7.368 (7.350-7.450); ABG PO2 (T) 46.1 mmHg (83-108); ALLEN'S TEST Positive; FCOHb 0.4 % (0.5-1.5); FLOW 1 L/min; FMetHb 0.1 % (0.3-1.12); FO2Hb 80.3 % (94-100); RESPIRATORY RATE (OBSERVED) 22 b/min; TOTAL HEMOGLOBIN 9.9 G/dl (12.0-16.0)
[2019-06-21 08:11] LABS: ABG OXYGEN SATURATION 80.7 % (95-98)
[2019-06-21] MEDS: nystatin 15 GM powder TP SCH ×2 (09:58→21:00)
[2019-06-21] MEDS: insulin Lispro (HumaLOG) vial - multi-dose SQ SCH ×2 (10:05→13:23)
[2019-06-21 11:16] LABS: ABG BASE EXCESS 12.9 mmol/L (-2.0-3.0); ABG HCO3 40.5 mmol/L (22.0-26.0); ABG OXYGEN SATURATION 94.7 % (95-98); ABG PCO2 (T) 71.5 mmHg (35.0-45.0); ABG PH (T) 7.371 (7.350-7.450); ABG PO2 (T) 75.9 mmHg (83-108); ALLEN'S TEST Positive; FCOHb 0.7 % (0.5-1.5); FMetHb 0.1 % (0.3-1.12); FO2Hb 93.9 % (94-100); MINUTE VOLUME 6 L/min; RESPIRATORY RATE 10 b/min; RESPIRATORY RATE (OBSERVED) 19 b/min; TIDAL VOLUME 328 mL; TOTAL HEMOGLOBIN 10.4 G/dl (12.0-16.0)
--- NOTE | 2019-06-21 11:27 | NUR ---
Pt arrived via gurney by LINH De Jesus on the surgical floor at 1100. Pt oriented to room and call light. Tele monitor placed and vital signs assessed. VS: BP: 104/54, HR: 83, T: 99.5, O2: 94% on BiPAP at 40% FiO2. Lesly-wick in place. All needs met.
--- NOTE | 2019-06-21 11:56 | NUR ---
Paged Dr. Womack: PAGER ID: [phone] MESSAGE: RE: Georgie Melvi 2940. FYI - patient took Xarelto this morning. Angio needs it held for 24 hours. Thora will be tomorrow. Thank you. Danielle [phone]
--- NOTE | 2019-06-21 12:47 | NUR ---
Per Dr. Womack, stop Xaralto for the next 48 hours as per pts future order for a thoracentesis.
--- NOTE | 2019-06-21 14:23 | NUR ---
Initial: Pt admit w/ weakness and SOB DX PEREZ, CHF, chronic respiratory failure retaining oxygen, and severely deconditioned w/ morbid obesity per MD note. BLE 4+ pitting edema present. Pt PO has fluctuated but returned to 75-100% avg mechanical soft/chop/heart healthy/carb controlled meal receiving double proteins BIDLD meeting needs. LBM 06/20. Receiving MVI in addition to lasix for edema. Will continue to monitor. Rec: 1. continue mechanical soft/chopped/carb controlled/heart healthy diet 2. double proteins BIDLD 3. weekly wts Addendum: 06/21/19 at [address] Amended: Links added.
--- NOTE | 2019-06-21 15:49 | NUR ---
Paged Dr. Womack regarding getting a blood gas draw with pts O2 at 99% PAGER ID: [phone] MESSAGE: Melvi Jacques 3017: RT would like to do a repeat ABG. Pulse ox shows O2 sat of 99%. RT would like to verify accuracy before changing settings on BiPAP. -Mae [phone]
[2019-06-21 16:35] LABS: ABG BASE EXCESS 15.7 mmol/L (-2.0-3.0); ABG HCO3 43.8 mmol/L (22.0-26.0); ABG OXYGEN SATURATION 92.7 % (95-98); ABG PCO2 (T) 80.3 mmHg (35.0-45.0); ABG PH (T) 7.355 (7.350-7.450); ABG PO2 (T) 68.7 mmHg (83-108); ALLEN'S TEST Positive; FCOHb 0.6 % (0.5-1.5); FMetHb 0.3 % (0.3-1.12); FO2Hb 91.9 % (94-100); RESPIRATORY RATE 10 b/min; RESPIRATORY RATE (OBSERVED) 18 b/min; TOTAL HEMOGLOBIN 9.5 G/dl (12.0-16.0)
--- NOTE | 2019-06-21 18:53 | NUR ---
[place]rientee documentation: I have reviewed and agree with all interventions, assessments performed and documented by LINH Wall. Orientee Medication Administration: For this medication-pass time frame, all medication were reviewed, dispensed, administered and documented per hospital policy by LINH Wall.
--- NOTE | 2019-06-21 18:54 | NUR ---
Problems reprioritized. Patient report given, questions answered & plan of care reviewed with Mykel MELTON. Patient stable at transfer of care.
--- NOTE | 2019-06-21 18:57 | NUR ---
Patient in room PCU 3011. I have received report from LINH Santos and had the opportunity to ask questions and assume patient care. Patient awake for bedside report and stable at this time. On room air and is saline locked. Will continue to monitor closely.
--- NOTE | 2019-06-21 18:59 | NUR ---
Patient on 4L NC while eating. OSMIN.
[2019-06-21] MEDS: ipratropium/albuterol 3ml nebule NEB SCH (20:29)
[2019-06-21] MEDS: insulin glargine (Lantus) pen - multi-dose SQ SCH (22:20)
--- NOTE | 2019-06-21 22:57 | NUR ---
Did not administer evening dose of Humalog. Patient's blood sugar 82 at 1700 and per nursing judgement, will treat conservatively. Will continue to monitor closely.
[2019-06-22 02:00] VITALS: BP 145/68
[2019-06-22] MEDS: ipratropium/albuterol 3ml nebule NEB SCH ×4 (02:50→19:52)
[2019-06-22 06:00] VITALS: BP 108/61
--- NOTE | 2019-06-22 06:29 | NUR ---
Problems reprioritized. Patient report given, questions answered & plan of care reviewed with LINH Santos and LINH Wall.
--- NOTE | 2019-06-22 06:31 | NUR ---
Patient in room PCU 3011. I have received report from LINH Hogue and had the opportunity to ask questions and assume patient care.
--- NOTE | 2019-06-22 06:34 | NUR ---
Patient in room PCU 3011. I have received report from Mykel MELTON and had the opportunity to ask questions and assume patient care. Patient on bi-pap 40% FiO2. All immediate needs met.
[2019-06-22] MEDS: K and/or MAG REPLACEMENT MC SCH (08:00)
[2019-06-22] MEDS: ascorbic acid 500mg tablet PO SCH ×2 (08:52→19:22)
[2019-06-22] MEDS: ferrous sulfate 325mg tablet PO SCH ×2 (08:52→19:22)
[2019-06-22] MEDS: gabapentin 100mg capsule PO SCH (08:52)
[2019-06-22] MEDS: multivitamins, therapeutics tablet PO SCH (08:53)
[2019-06-22] MEDS: acetaZOLAMIDE 250mg tablet PO SCH ×2 (08:53→19:21)
[2019-06-22] MEDS: pantoprazole 40mg Tablet.DR PO SCH ×2 (08:53→19:22)
[2019-06-22] MEDS: lactobacillus rhamnosus 10,000 MMU CELLS/CAPSULE PO SCH ×2 (08:53→19:22)
[2019-06-22] MEDS: loratadine 10mg tablet PO SCH (08:53)
[2019-06-22] MEDS: HYDROcodone/acetaminophen 5mg/325mg tablet PO PRN ×2 (08:53→17:23)
[2019-06-22] MEDS: vitamin D (cholecalciferol) 1,000 unit tablet PO SCH (08:57)
[2019-06-22] MEDS: lisinopril 20mg tablet PO SCH (08:57)
[2019-06-22] MEDS: carVEDilol 12.5mg tablet PO SCH ×2 (08:58→19:21)
[2019-06-22] MEDS: furosemide 40mg tablet PO SCH (08:58)
[2019-06-22] MEDS: CefTRIAXone/D5W-Rocephin 1gm 50 ML IV SCH (09:02)
[2019-06-22] MEDS: insulin Lispro (HumaLOG) vial - multi-dose SQ SCH ×3 (09:11→19:19)
[2019-06-22 10:14] LABS: ALBUMIN 2.7 G/DL (3.4-5.0); ANION GAP 0 (8-16); BLOOD UREA NITROGEN 33 MG/DL (7-18); BUN/CREATININE RATIO 23.2 (6.6-38.0); CALCIUM 9.2 MG/DL (8.5-10.1); CHLORIDE 100 MMOL/L (99-107); CREATININE 1.42 MG/DL (0.40-0.90); GLUCOSE 234 MG/DL (70-104); POTASSIUM 5.1 MMOL/L (3.5-5.1); SODIUM 140 MMOL/L (135-145); TOTAL CARBON DIOXIDE 39.8 MMOL/L (24-32); eGFR 36 ML/MIN
[2019-06-22] MEDS: budesonide 0.5mg/2ml UD nebule IH SCH ×2 (10:33→19:36)
[2019-06-22 11:00] VITALS: BP 103/37
[2019-06-22] MEDS: nystatin 15 GM powder TP SCH ×2 (13:35→19:23)
[2019-06-22 15:00] VITALS: BP 111/46
[2019-06-22 16:11] LABS: ABG BASE EXCESS 13.6 mmol/L (-2.0-3.0); ABG HCO3 41.3 mmol/L (22.0-26.0); ABG OXYGEN SATURATION 94.6 % (95-98); ABG PCO2 (T) 73.4 mmHg (35.0-45.0); ABG PH (T) 7.368 (7.350-7.450); ABG PO2 (T) 77.2 mmHg (83-108); ALLEN'S TEST Positive; FMetHb 0.2 % (0.3-1.12); FO2Hb 94.4 % (94-100); MINUTE VOLUME 8 L/min; RESPIRATORY RATE 10 b/min; RESPIRATORY RATE (OBSERVED) 18 b/min
[2019-06-22 18:00] VITALS: BP 123/60
--- NOTE | 2019-06-22 18:00 | NUR ---
Patient in room PCU 3011. I have received report from Danielle MELTON and Mae RN and had the opportunity to ask questions and assume patient care.
--- NOTE | 2019-06-22 18:17 | NUR ---
Problems reprioritized. Patient report given, questions answered & plan of care reviewed with LINH Serrano.
--- NOTE | 2019-06-22 18:24 | NUR ---
Problems reprioritized. Patient report given, questions answered & plan of care reviewed with LINH Sam. Patient stable at transfer of care.
[2019-06-22] MEDS: albuterol 2.5 MG/3 ML nebule NEB PRN (19:36)
[2019-06-22] MEDS: insulin glargine (Lantus) pen - multi-dose SQ SCH (21:39)
[2019-06-22 22:00] VITALS: BP 126/75
[2019-06-23 02:00] VITALS: BP 129/46
[2019-06-23] MEDS: ipratropium/albuterol 3ml nebule NEB SCH ×2 (03:11→10:50)
--- NOTE | 2019-06-23 05:05 | NUR ---
END NOC NOTE Patient slept well tonight, refused to reposition. BiPAP was put on at 0000 and kept it on for the rest of the night. All medication was given with applesauce per patient request. Will continue to monitor.
[2019-06-23 06:00] VITALS: BP 147/53
--- NOTE | 2019-06-23 06:26 | NUR ---
Problems reprioritized. Patient report given, questions answered & plan of care reviewed with Danielle MELTON.
--- NOTE | 2019-06-23 06:42 | NUR ---
Patient in room PCU 3011. I have received report from Cecy MELTON and had the opportunity to ask questions and assume patient care. Patient asleep in bed. On bipap 30% FiO2. All immediate needs met at this time.
[2019-06-23] MEDS: K and/or MAG REPLACEMENT MC SCH (08:00)
[2019-06-23] MEDS: CefTRIAXone/D5W-Rocephin 1gm 50 ML IV SCH (08:49)
[2019-06-23] MEDS: gabapentin 100mg capsule PO SCH (08:50)
[2019-06-23] MEDS: loratadine 10mg tablet PO SCH (08:51)
[2019-06-23] MEDS: furosemide 40mg tablet PO SCH (08:51)
[2019-06-23] MEDS: ascorbic acid 500mg tablet PO SCH (08:51)
[2019-06-23] MEDS: lactobacillus rhamnosus 10,000 MMU CELLS/CAPSULE PO SCH (08:52)
[2019-06-23] MEDS: ferrous sulfate 325mg tablet PO SCH (08:52)
[2019-06-23] MEDS: acetaZOLAMIDE 250mg tablet PO SCH (08:52)
[2019-06-23] MEDS: carVEDilol 12.5mg tablet PO SCH (08:52)
[2019-06-23] MEDS: multivitamins, therapeutics tablet PO SCH (08:52)
[2019-06-23] MEDS: vitamin D (cholecalciferol) 1,000 unit tablet PO SCH (08:54)
[2019-06-23] MEDS: lisinopril 20mg tablet PO SCH (08:54)
[2019-06-23] MEDS: pantoprazole 40mg Tablet.DR PO SCH (08:54)
[2019-06-23] MEDS: nystatin 15 GM powder TP SCH (08:55)
[2019-06-23] MEDS: insulin Lispro (HumaLOG) vial - multi-dose SQ SCH ×2 (09:22→13:03)
[2019-06-23] MEDS: HYDROcodone/acetaminophen 5mg/325mg tablet PO PRN (09:23)
[2019-06-23] MEDS: budesonide 0.5mg/2ml UD nebule IH SCH (10:50)
[2019-06-23 11:00] VITALS: BP 116/63
--- NOTE | 2019-06-23 14:08 | NUR ---
Patient stable for transfer per MD orders. Report called to [facility] to LINH Guallpa. All questions answered. PIV discontinued. court recording monitor discontinued. Belongings collected and sent with patient. Patient transported via [employer]. Transfer packet sent with patient. Wound pictures taken on discharge.
--- NOTE | 2019-06-23 15:54 | NUR ---
Orientee documentation: I have reviewed and agree with all interventions, assessments performed and documented by LINH Cash. Orientee Medication Administration: For this medication-pass time frame, all medication were reviewed, dispensed, administered and documented per hospital policy by Shreya MELTON.
== END 2019-06-23 14:08 | DRG 682 ==
LOC: ER 13:37 → ED HOLD 17:13 → SUR 3N 19:34 → PCU 3S 06-21 10:45
PROVIDERS: ADMIT Internal Medicine; ATTEND Family Medicine
PROC: 5A09357 Assistance with Respiratory Ventilation, Less than 24 Consecutive Hours, Continuous Positive Airway Pressure (ICD-10-PCS; 2019-06-21)
PROC: 5A09357 Assistance with Respiratory Ventilation, Less than 24 Consecutive Hours, Continuous Positive Airway Pressure (ICD-10-PCS; 2019-06-22)
PROC: 5A09357 Assistance with Respiratory Ventilation, Less than 24 Consecutive Hours, Continuous Positive Airway Pressure (ICD-10-PCS; principal; 2019-06-23)
DX: N17.9 Acute kidney failure, unspecified (principal); J96.22 Acute and chronic respiratory failure with hypercapnia; Z68.42 Body mass index [BMI] 45.0-49.9, adult; E87.3 Alkalosis; N39.0 Urinary tract infection, site not specified; L97.919 Non-pressure chronic ulcer of unspecified part of right lower leg with unspecified severity; I13.0 Hypertensive heart and chronic kidney disease with heart failure and stage 1 through stage 4 chronic kidney disease, or unspecified chronic kidney disease; J91.8 Pleural effusion in other conditions classified elsewhere; I50.9 Heart failure, unspecified; E66.01 Morbid (severe) obesity due to excess calories; T50.1X5A Adverse effect of loop [high-ceiling] diuretics, initial encounter; E11.22 Type 2 diabetes mellitus with diabetic chronic kidney disease; E11.42 Type 2 diabetes mellitus with diabetic polyneuropathy; I25.10 Atherosclerotic heart disease of native coronary artery without angina pectoris; Z53.9 Procedure and treatment not carried out, unspecified reason; Z60.2 Problems related to living alone; G47.30 Sleep apnea, unspecified; G89.29 Other chronic pain; K21.9 Gastro-esophageal reflux disease without esophagitis; M19.90 Unspecified osteoarthritis, unspecified site; E11.622 Type 2 diabetes mellitus with other skin ulcer; N18.9 Chronic kidney disease, unspecified; Z77.090 Contact with and (suspected) exposure to asbestos; Z79.4 Long term (current) use of insulin; Z83.3 Family history of diabetes mellitus; Z86.73 Personal history of transient ischemic attack (TIA), and cerebral infarction without residual deficits; Z88.2 Allergy status to sulfonamides; Z88.1 Allergy status to other antibiotic agents; Z91.041 Radiographic dye allergy status; I25.2 Old myocardial infarction; Z87.11 Personal history of peptic ulcer disease; Z95.1 Presence of aortocoronary bypass graft; Z95.2 Presence of prosthetic heart valve; Z99.81 Dependence on supplemental oxygen; Z79.899 Other long term (current) drug therapy; Z98.891 History of uterine scar from previous surgery; Z90.49 Acquired absence of other specified parts of digestive tract; Y92.89 Other specified places as the place of occurrence of the external cause
CPT/HCPCS: 36415; 36600; 71045; 74176; 80048; 80053; 81001; 82803; 82948; 83036; 83735; 83880; 84145; 84484; 85018; 85025; 85610; 87081; 93005; 94640; 94660; 94760; 97110; 97116; 97161; 97530; 99285; G0378; J0696; J1815; J2270; J7626; Q2037

== ENCOUNTER 2019-06-25 04:37 | Inpatient (IN) | payer MEDICARE, MEDICAID ==
[~2019-06-25] VITALS: Ht 152.4 cm; Wt 118.0 kg
[~2019-06-25 04:37] MED LIST changes: -AMLO10TA PO; -APIX5TAB3 PO; +BENA20TA76 PO; +BUDE0.5A11 NEB; -GABA-530 PO; +GABA100C PO; +INSU100V9 SQ; -IPRA3AMP31 IH; -LACTC PO; +LOSA1TAB41 PO; -MAGN400O6 PO; +MECL-111 PO; -PRED20TA PO; +RIVA20TA PO
--- NOTE | 2019-06-25 04:59 | NUR ---
PT IS DIFFICULT IV START
[2019-06-25 05:36] LABS: BASOPHILS # (AUTO) 0.1 X10'3 (0-0.2); BASOPHILS % (AUTO) 0.6 % (0-1); EOSINOPHILS # (AUTO) 0.4 X10'3 (0-0.9); EOSINOPHILS % (AUTO) 3.6 % (0-6); HEMATOCRIT 31.7 % (35.0-45.0); HEMOGLOBIN 9.8 g/dl (12.0-16.0); LYMPHOCYTES # (AUTO) 0.9 X10'3 (1.1-4.8); LYMPHOCYTES % (AUTO) 9.4 % (21-51); MEAN CORPUSCULAR HEMOGLOBIN 29.4 PG (27.0-31.0); MEAN CORPUSCULAR HGB CONC 31.1 g/dL (33.0-36.5); MEAN CORPUSCULAR VOLUME 94.7 FL (78-98); MEAN PLATELET VOLUME 9.3 FL (7.4-10.4); MONOCYTES # (AUTO) 0.9 X10'3 (0-0.9); MONOCYTES % (AUTO) 9.4 % (2-12); NEUTROPHILS # (AUTO) 7.6 X10'3 (1.8-7.7); PLATELET COUNT 139 X10'3 (140-440); RED BLOOD COUNT 3.35 X10'6 (4.20-5.60); RED CELL DISTRIBUTION WIDTH 17.1 % (11.5-14.5); WHITE BLOOD COUNT 9.9 X10'3 (4.5-11.0)
--- NOTE | 2019-06-25 05:41 | NUR ---
pt reports she is not feeling any more SOB than usual. She is currently on 3 lpm, normally wears 2 lpm
[2019-06-25 05:54] LABS: ALANINE AMINOTRANSFERASE 10 U/L (12-78); ALBUMIN 3.2 G/DL (3.4-5.0); ALBUMIN/GLOBULIN RATIO 0.7 (1.1-1.5); ALKALINE PHOSPHATASE 76 IU/L (46-116); ANION GAP -2 (8-16); ASPARTATE AMINO TRANSFERASE 9 U/L (10-37); BILIRUBIN,TOTAL 0.5 MG/DL (0.1-1.0); BLOOD UREA NITROGEN 39 MG/DL (7-18); BUN/CREATININE RATIO 32.2 (6.6-38.0); CALCIUM 9.7 MG/DL (8.5-10.1); CHLORIDE 102 MMOL/L (99-107); CREATININE 1.21 MG/DL (0.40-0.90); GLUCOSE 191 MG/DL (70-104); MAGNESIUM 2.4 MG/DL (1.5-2.4); SODIUM 142 MMOL/L (135-145); TOTAL PROTEIN 7.9 G/DL (6.4-8.2); eGFR 43 ML/MIN
[2019-06-25 05:56] LABS: TOTAL CARBON DIOXIDE 42.2 MMOL/L (24-32)
--- NOTE | 2019-06-25 06:07 | NUR ---
PT RESTING COMFORTBALY ON GURNEY. NO DISTRESS NOTED. SHE REMAINS ON MONITORING EQUIPMENT.
[2019-06-25] MEDS ORDERED: furosemide 10 MG/1 ML 10ml inj IV ONE ×2 (06:15→08:25)
--- NOTE | 2019-06-25 06:24 | NUR ---
Patient received on bed awake.No reported complaints at this time.
--- NOTE | 2019-06-25 07:30 | NUR ---
Skin checked,picture taken to BLE,buttock area intact with blanchable redness.Patient noted with urinary incontinence x1,patient changed and repositioned.Changed to hospital gown,call light within reach.
[2019-06-25] MEDS ORDERED: BISA10SU60 PR (08:03)
[2019-06-25] MEDS ORDERED: MAGN400O6 PO (08:03)
[2019-06-25] MEDS ORDERED: ALB0.5UD IH (08:03)
[2019-06-25] MEDS ORDERED: OMEP40CA13 PO (08:03)
[2019-06-25] MEDS ORDERED: SENN-162 PO (08:03)
[2019-06-25] MEDS ORDERED: LORA10TA7 PO (08:03)
[2019-06-25] MEDS ORDERED: HYDR-3965 PO (08:03)
[2019-06-25] MEDS ORDERED: ALBU18HF2 INH (08:03)
[2019-06-25] MEDS ORDERED: NA P133E4 RC (08:03)
[2019-06-25] MEDS ORDERED: ONDA4TAB6 PO (08:03)
[2019-06-25] MEDS ORDERED: LISI-600 PO (08:03)
[2019-06-25] MEDS ORDERED: LACTC PO (08:03)
[2019-06-25] MEDS ORDERED: ondansetron/PF 4mg/2ml inj IV PRN ×2 (08:30→13:45)
[2019-06-25] MEDS ORDERED: mag hydrox/Alum hydrox/simeth 30ml oral suspension PO PRN ×2 (08:30→13:45)
[2019-06-25] MEDS ORDERED: magnesium hydroxide 30ml (MOM) UD suspension PO PRN ×2 (08:30→13:45)
[2019-06-25] MEDS ORDERED: acetaminophen 325mg tablet PO PRN ×2 (08:30→13:45)
--- NOTE | 2019-06-25 09:13 | NUR ---
ATTEMPTED TO CALL REPORT
--- NOTE | 2019-06-25 09:25 | NUR ---
Patient going to RM 311. I have received report from LINH Coates and had the opportunity to ask questions and assume patient care.
[2019-06-25 10:15] VITALS: BP 155/56
--- NOTE | 2019-06-25 10:47 | NUR ---
PAGER ID: [phone] MESSAGE: Patient Alexander Jacques in RM 311. VS stable. Hx of MDRO. UA? Thanks. Kathleen ACCE [phone]
[2019-06-25] MEDS ORDERED: HYDROcodone/acetaminophen 5mg/325mg tablet PO PRN (12:30)
[2019-06-25] MEDS ORDERED: non-formulary drug (Ondansetron Hcl (Zofran) 1 TAB) PO PRN (12:30)
[2019-06-25] MEDS ORDERED: HYDROcodone/acetaminophen 10/325mg tab PO PRN (12:30)
[2019-06-25] MEDS ORDERED: nitroGLYCERIN 0.4mg SUBLingual tab SL PRN (12:30)
[2019-06-25] MEDS ORDERED: non-formulary drug (Na Phos,M-B/Na Phos,Di-Ba* (Fleet's Enema*) 1 BOTTLE) RC SCH (12:30)
[2019-06-25] MEDS ORDERED: LEVO500T2 PO (13:38)
[2019-06-25] MEDS ORDERED: PRED10TA23 PO (13:38)
[2019-06-25] MEDS ORDERED: albuterol 2.5 MG/3 ML nebule NEB SCH (14:00)
--- NOTE | 2019-06-25 15:00 | NUR ---
Discharge Note: Pt. is alert and oriented to person place time and situation. She understands and agrees to rehabilitation at [facility]. She is in Stable condition, without any shortness of breath at rest and during conversation. Urinary output has been copious. Transported via gurney on oxygen, leaving at 15:00, with all belongings. Right lower leg wound is covered clean and dry. Written discharge instructions are provided as well as an oral phone report given to the facility nursing staff.
[2019-06-25] MEDS ORDERED: carVEDilol 12.5mg tablet PO SCH (20:00)
[2019-06-25] MEDS ORDERED: furosemide 40mg tablet PO SCH (20:00)
[2019-06-25] MEDS ORDERED: ferrous sulfate 325mg tablet PO SCH (20:00)
[2019-06-25] MEDS ORDERED: lactobacillus rhamnosus 10,000 MMU CELLS/CAPSULE PO SCH (20:00)
[2019-06-25] MEDS ORDERED: budesonide 0.5mg/2ml UD nebule IH SCH (20:00)
[2019-06-26] MEDS ORDERED: pantoprazole 40mg Tablet.DR PO SCH (07:30)
[2019-06-26] MEDS ORDERED: lisinopril 20mg tablet PO SCH (08:00)
[2019-06-26] MEDS ORDERED: non-formulary drug (Losartan/Hydrochlorothiazide (Losartan-Hctz 100-12.5 Mg Tab) 1 TAB) PO SCH (08:00)
[2019-06-26] MEDS ORDERED: sennosides 8.6mg tablet PO SCH (08:00)
[2019-06-26] MEDS ORDERED: ascorbic acid 500mg tablet PO SCH (08:00)
[2019-06-26] MEDS ORDERED: rivaroxaban 20mg tablet PO SCH (08:00)
[2019-06-26] MEDS ORDERED: multivitamins, therapeutics tablet PO SCH (08:00)
[2019-06-26] MEDS ORDERED: magnesium hydroxide 30ml (MOM) UD suspension PO SCH (08:00)
[2019-06-26] MEDS ORDERED: BENAZEPRIL HCL PO SCH (08:00)
[2019-06-26] MEDS ORDERED: meclizine 12.5mg tablet PO PRN (08:00)
[2019-06-26] MEDS ORDERED: vitamin D (cholecalciferol) 1,000 unit tablet PO SCH (08:00)
[2019-06-26] MEDS ORDERED: losartan 50mg tablet PO SCH (08:00)
[2019-06-26] MEDS ORDERED: gabapentin 100mg capsule PO SCH (08:00)
[2019-06-26] MEDS ORDERED: HYDROchlorothiazide 12.5mg capsule PO SCH (08:00)
[2019-06-26] MEDS ORDERED: non-formulary drug (Fluticasone/Vilanterol (Breo Ellipta 200-25 Mcg INH) 1 PUFF) IH SCH (08:00)
[2019-06-26] MEDS ORDERED: loratadine 10mg tablet PO SCH (08:00)
== END 2019-06-25 14:50 | DRG 189 ==
LOC: ER 04:38 → ED HOLD 09:04 → MED 3N 09:51
PROVIDERS: ADMIT Family Medicine; ATTEND Family Medicine
DX: J96.20 Acute and chronic respiratory failure, unspecified whether with hypoxia or hypercapnia (principal); J18.9 Pneumonia, unspecified organism; I13.0 Hypertensive heart and chronic kidney disease with heart failure and stage 1 through stage 4 chronic kidney disease, or unspecified chronic kidney disease; Z68.43 Body mass index [BMI] 50.0-59.9, adult; J44.9 Chronic obstructive pulmonary disease, unspecified; E11.22 Type 2 diabetes mellitus with diabetic chronic kidney disease; E66.01 Morbid (severe) obesity due to excess calories; G47.33 Obstructive sleep apnea (adult) (pediatric); G89.4 Chronic pain syndrome; I25.10 Atherosclerotic heart disease of native coronary artery without angina pectoris; I48.91 Unspecified atrial fibrillation; I50.9 Heart failure, unspecified; K21.9 Gastro-esophageal reflux disease without esophagitis; M19.90 Unspecified osteoarthritis, unspecified site; N18.9 Chronic kidney disease, unspecified; Z86.718 Personal history of other venous thrombosis and embolism; Z86.73 Personal history of transient ischemic attack (TIA), and cerebral infarction without residual deficits; Z88.2 Allergy status to sulfonamides; Z88.1 Allergy status to other antibiotic agents; Z91.041 Radiographic dye allergy status; I25.2 Old myocardial infarction; Z87.11 Personal history of peptic ulcer disease; Z95.1 Presence of aortocoronary bypass graft; Z95.2 Presence of prosthetic heart valve; Z90.49 Acquired absence of other specified parts of digestive tract
CPT/HCPCS: 36415; 71045; 80053; 82948; 83735; 83880; 84145; 84484; 85025; 93005; 96374; 99285; GO378; J1940

== ENCOUNTER 2019-09-26 12:02 | Inpatient (IN) | payer MEDICARE, MEDICAID ==
[~2019-09-26] VITALS: Ht 165.1 cm; Wt 132.1 kg
[~2019-09-26 12:02] MED LIST changes: +ALB0.5UD IH; -BENA20TA76 PO; +BISA10SU60 PR; -FEXO180T94 PO; +HYDR-3965 PO; -INSU100V5 IJ; -INSU100V9 SQ; +LACTC PO; +LORA10TA7 PO; +MAGN400O6 PO; -MECL-111 PO; +MECL-159 PO; +NA P133E4 RC; +OMEP40CA13 PO; +ONDA4TAB6 PO; -PANT40TA4 PO; +SENN-162 PO
[2019-09-26] MEDS ORDERED: normal saline 1000ML IV soln IVB ONE (12:15)
[2019-09-26 12:50] LABS: BASOPHILS # (AUTO) 0.1 X10'3 (0-0.2); BASOPHILS % (AUTO) 0.6 % (0-1); EOSINOPHILS # (AUTO) 0.3 X10'3 (0-0.9); EOSINOPHILS % (AUTO) 3.2 % (0-6); HEMATOCRIT 25.8 % (35.0-45.0); HEMOGLOBIN 7.9 g/dl (12.0-16.0); LYMPHOCYTES # (AUTO) 0.9 X10'3 (1.1-4.8); LYMPHOCYTES % (AUTO) 9.4 % (21-51); MEAN CORPUSCULAR HEMOGLOBIN 26.8 PG (27.0-31.0); MEAN CORPUSCULAR HGB CONC 30.7 g/dL (33.0-36.5); MEAN PLATELET VOLUME 8.5 FL (7.4-10.4); MONOCYTES # (AUTO) 0.8 X10'3 (0-0.9); MONOCYTES % (AUTO) 7.7 % (2-12); NEUTROPHILS # (AUTO) 7.8 X10'3 (1.8-7.7); NEUTROPHILS % (AUTO) 79.1 % (42-75); PLATELET COUNT 153 X10'3 (140-440); RED BLOOD COUNT 2.97 X10'6 (4.20-5.60); RED CELL DISTRIBUTION WIDTH 17.8 % (11.5-14.5); WHITE BLOOD COUNT 9.8 X10'3 (4.5-11.0)
[2019-09-26 12:54] LABS: D-DIMER 0.62 MG/L FEU (0-0.50)
[2019-09-26 12:58] LABS: ALANINE AMINOTRANSFERASE 13 U/L (12-78); ALBUMIN 3.2 G/DL (3.4-5.0); ALBUMIN/GLOBULIN RATIO 0.9 (1.1-1.5); ALKALINE PHOSPHATASE 60 IU/L (46-116); ANION GAP -1 (8-16); ASPARTATE AMINO TRANSFERASE 13 U/L (10-37); BILIRUBIN,TOTAL 0.8 MG/DL (0.1-1.0); BLOOD UREA NITROGEN 38 MG/DL (7-18); BUN/CREATININE RATIO 32.5 (6.6-38.0); CALCIUM 9.3 MG/DL (8.5-10.1); CHLORIDE 106 MMOL/L (99-107); CREATININE 1.17 MG/DL (0.40-0.90); GLUCOSE 154 MG/DL (70-104); POTASSIUM 4.7 MMOL/L (3.5-5.1); SODIUM 143 MMOL/L (135-145); TOTAL CARBON DIOXIDE 38.1 MMOL/L (24-32); TOTAL PROTEIN 6.7 G/DL (6.4-8.2); eGFR 45 ML/MIN
[2019-09-26 13:07] LABS: LIPASE 83 U/L (73-393)
[2019-09-26] MEDS ORDERED: aspirin 81mg tab.chew PO ONE (13:50)
[2019-09-26 14:44] LABS: CLARITY,URINE CLOUDY (Clear); COLOR,URINE YELLOW (Yellow); GLUCOSE, URINE NEGATIVE (Neg); KETONES,URINE NEGATIVE (Neg); LEUKOCYTE ESTERASE ,URINE SMALL (Neg); NITRITES, URINE POSITIVE (Neg); OCCULT BLOOD,URINE LARGE (Neg); PROTEIN,URINE TRACE mg/dl (Neg); UROBILINOGEN,URINE 0.2 E.U/dL (0.2-1.0)
[2019-09-26 14:46] LABS: UA COLLECTION TYPE STRAIGHT CATH
[2019-09-26 14:49] LABS: BACTERIA,URINE 4+ /HPF (Neg); MUCUS STRANDS NONE SEEN /LPF (Neg); RBC,URINE 20-50 /HPF (0-2); RENAL CELLS, URINE FEW /HPF; SQUAMOUS EPITHELIAL CELL,UR NONE SEEN /LPF (FEW); WBC CLUMPS,URINE MANY /HPF (NEGATIVE); WBC,URINE TNTC /HPF (0-4)
[2019-09-26] MEDS ORDERED: normal saline 1000ml 1,000 ML IV SCH (14:53)
[2019-09-26] MEDS ORDERED: mag hydrox/Alum hydrox/simeth 30ml oral suspension PO PRN (14:55)
[2019-09-26] MEDS ORDERED: morphine 2 MG/ML inj. syringe IV PRN ×2 (14:55)
[2019-09-26] MEDS ORDERED: magnesium hydroxide 30ml (MOM) UD suspension PO PRN (14:55)
[2019-09-26] MEDS ORDERED: magnesium Cl slow-release 64mg tablet PO PRN (14:55)
[2019-09-26] MEDS ORDERED: acetaminophen 650mg rectal suppository RC PRN (14:55)
[2019-09-26] MEDS ORDERED: bisacodyl 10mg suppository rectal RC PRN (14:55)
[2019-09-26] MEDS ORDERED: magnesium 2GM in 50ml NS 50 ML IV PRN (14:55)
[2019-09-26] MEDS ORDERED: ondansetron/PF 4mg/2ml inj IV PRN (14:55)
[2019-09-26] MEDS ORDERED: potassium CL 10mEq/100ml bag 100 ML IV PRN ×2 (14:55)
[2019-09-26] MEDS ORDERED: metoclopramide 5 mg/ml inj IV PRN (14:55)
[2019-09-26] MEDS ORDERED: HYDROcodone/acetaminophen 5mg/325mg tablet PO PRN (14:55)
[2019-09-26] MEDS ORDERED: diphenhydrAMINE 50 mg/ml inj IV PRN (14:55)
[2019-09-26] MEDS ORDERED: magnesium 4gm in 100ml NS 100 ML IV PRN (14:55)
[2019-09-26] MEDS ORDERED: diphenhydrAMINE 25mg capsule PO PRN (14:55)
[2019-09-26] MEDS ORDERED: diltiazem-NS 100mg/100ml 100 ML IV SCH (14:55)
[2019-09-26] MEDS ORDERED: potassium Cl 20 mEq SR tablet PO PRN ×2 (14:55)
[2019-09-26] MEDS ORDERED: acetaminophen 325mg tablet PO PRN ×2 (14:55)
[2019-09-26] MEDS ORDERED: NORepinephrine 1 mg/ml inj IV ONE (15:00)
[2019-09-26] MEDS ORDERED: calcium chloride 100 MG/1 ML inj IV ONE (15:00)
[2019-09-26] MEDS ORDERED: sodium bicarbonate (8.4%) 1 mEq/ml syringe ONE (15:00)
[2019-09-26] MEDS ORDERED: epiNEPHrine 0.1mg/ml 10ml syringe ONE (15:00)
[2019-09-26] MEDS ORDERED: sod chloride 0.9% 10ml flush syringe IV ONE (15:00)
[2019-09-26] MEDS: piperacillin/tazo 3.375gm/50ml 50 ML IV SCH (16:19)
--- NOTE | 2019-09-26 16:20 | NUR ---
Received report from Sangeetha MELTON in the ER, patient in room ED 9. Awaiting pts arrival to PCU.
[2019-09-26 17:20] VITALS: BP 142/63
--- NOTE | 2019-09-26 17:20 | NUR ---
Patient ARRIVED TO PCU AND IS in room PCU 3010.
--- NOTE | 2019-09-26 17:50 | NUR ---
Pt came up from ER with one PIV and with NS and Zosyn infusing. Primary RN and storage battery charger could not place another PIV, called down to ER and they had been trying to place another PIV with ultrasound without success. I stopped the Zosyn IV, so a partial dose of Zosyn was given, due prioritizing Diltiazem gtt over Zosyn IV which are incompatible to run together. Will continue to monitor closely.
[2019-09-26] MEDS: diltiazem-NS 100mg/100ml 100 ML IV SCH (18:02)
--- NOTE | 2019-09-26 18:22 | NUR ---
Problems reprioritized. Patient report given, questions answered & plan of care reviewed with Keturah MELOTN.
[2019-09-26 19:00] VITALS: BP 138/43
--- NOTE | 2019-09-26 19:03 | NUR ---
Patient in room PCU 3010. I have received report from LINH Ontiveros and had the opportunity to ask questions and assume patient care.
[2019-09-26] MEDS: K and/or MAG REPLACEMENT MC SCH (20:00)
[2019-09-26 21:00] VITALS: BP 142/51
[2019-09-26] MEDS ORDERED: temazepam 15mg capsule PO PRN (21:00)
[2019-09-26 23:00] VITALS: BP 144/51
[2019-09-27] VITALS (12 sets, daily range): BP systolic 127–185; BP diastolic 46–109
--- NOTE | 2019-09-27 02:24 | NUR ---
2 IV start attempts made, patient is very edematous and needs a central line. Unable to administer Zosyn in the same Y site as Cardizem.
--- NOTE | 2019-09-27 03:52 | NUR ---
PAGER ID: [phone] MESSAGE: [id number] Melvi Jacques: Patient has 4+ pitting edema Gets 40 mg of Lasix BID at home. Did not take for two days she states. She needs a dose now, skin is edematous, very tight, BP elevated systolic of 167 Thanks, Keturah [phone]
[2019-09-27] MEDS ORDERED: furosemide 40mg/4ml inj IV ONE (05:40)
[2019-09-27 06:01] LABS: BASOPHILS # (AUTO) 0.1 X10'3 (0-0.2); BASOPHILS % (AUTO) 0.9 % (0-1); EOSINOPHILS # (AUTO) 0.4 X10'3 (0-0.9); EOSINOPHILS % (AUTO) 4.1 % (0-6); HEMATOCRIT 24.9 % (35.0-45.0); HEMOGLOBIN 7.9 g/dl (12.0-16.0); LYMPHOCYTES # (AUTO) 0.8 X10'3 (1.1-4.8); LYMPHOCYTES % (AUTO) 8.6 % (21-51); MEAN CORPUSCULAR HEMOGLOBIN 27.4 PG (27.0-31.0); MEAN CORPUSCULAR HGB CONC 31.6 g/dL (33.0-36.5); MEAN CORPUSCULAR VOLUME 86.9 FL (78-98); MEAN PLATELET VOLUME 8.4 FL (7.4-10.4); MONOCYTES # (AUTO) 0.8 X10'3 (0-0.9); MONOCYTES % (AUTO) 8.8 % (2-12); NEUTROPHILS # (AUTO) 7.1 X10'3 (1.8-7.7); NEUTROPHILS % (AUTO) 77.6 % (42-75); PLATELET COUNT 152 X10'3 (140-440); RED BLOOD COUNT 2.86 X10'6 (4.20-5.60); RED CELL DISTRIBUTION WIDTH 17.2 % (11.5-14.5); WHITE BLOOD COUNT 9.1 X10'3 (4.5-11.0)
[2019-09-27 06:14] LABS: ALANINE AMINOTRANSFERASE 12 U/L (12-78); ALBUMIN/GLOBULIN RATIO 0.9 (1.1-1.5); ALKALINE PHOSPHATASE 54 IU/L (46-116); ANION GAP 0 (8-16); ASPARTATE AMINO TRANSFERASE 12 U/L (10-37); BILIRUBIN,TOTAL 0.7 MG/DL (0.1-1.0); BLOOD UREA NITROGEN 32 MG/DL (7-18); BUN/CREATININE RATIO 30.2 (6.6-38.0); CALCIUM 8.9 MG/DL (8.5-10.1); CHLORIDE 106 MMOL/L (99-107); CHOL/HDL RATIO 3.8 (0.00-4.99); CHOLESTEROL 124 MG/DL (0-200); CREATININE 1.06 MG/DL (0.40-0.90); GLUCOSE 150 MG/DL (70-104); HDL CHOLESTEROL 33 MG/DL (35-60); LDL CHOLESTEROL 79 MG/DL (50-100); PHOSPHORUS 2.9 MG/DL (2.3-4.5); POTASSIUM 4.6 MMOL/L (3.5-5.1); SODIUM 145 MMOL/L (135-145); TOTAL CARBON DIOXIDE 38.6 MMOL/L (24-32); TOTAL PROTEIN 6.4 G/DL (6.4-8.2); TRIGLYCERIDES 99 MG/DL (20-135); eGFR 50 ML/MIN
--- NOTE | 2019-09-27 06:31 | NUR ---
Problems reprioritized. Patient report given, questions answered & plan of care reviewed with LINH Trujillo.
--- NOTE | 2019-09-27 06:54 | NUR ---
Patient in room PCU 3010. I have received report from LINH Rebollar and had the opportunity to ask questions and assume patient care.
[2019-09-27] MEDS: furosemide 40mg/4ml inj IV SCH ×2 (07:24→20:00)
[2019-09-27] MEDS: K and/or MAG REPLACEMENT MC SCH ×2 (08:00→20:00)
[2019-09-27] MEDS: piperacillin/tazo 3.375gm/50ml 50 ML IV SCH ×3 (08:00→16:23)
--- NOTE | 2019-09-27 08:15 | NUR ---
Per Cassandra RN physician would like a midline, pt having difficulty maintaining oxygen saturation, RN states she will page again when ready. Tg PICC RN
[2019-09-27] MEDS ORDERED: ondansetron 4mg rapidly disintigrating tab PO PRN (09:25)
[2019-09-27] MEDS ORDERED: non-formulary drug (Na Phos,M-B/Na Phos,Di-Ba* (Fleet's Enema*) 1 BOTTLE) RC SCH (09:25)
[2019-09-27] MEDS ORDERED: nitroGLYCERIN 0.4mg SUBLingual tab SL PRN (09:25)
[2019-09-27] MEDS ORDERED: rivaroxaban 20mg tablet PO SCH (09:25)
[2019-09-27] MEDS ORDERED: bisacodyl 10mg suppository rectal RC SCH (09:25)
[2019-09-27] MEDS ORDERED: albuterol 2.5 MG/3 ML nebule NEB PRN (09:50)
[2019-09-27] MEDS ORDERED: dextrose ORAL solution 15 GM/59 ML bottle PO PRN ×2 (10:30)
[2019-09-27] MEDS ORDERED: dextrose 50%-water 50ml dispensing syringe IV PRN ×2 (10:30)
[2019-09-27] MEDS ORDERED: glucagon, human recombinant 1mg kit SUBCUT PRN (10:30)
[2019-09-27] MEDS ORDERED: MESSAGE TO PHARMACY PO ONE (10:30)
[2019-09-27] MEDS ORDERED: insulin Lispro (HumaLOG) vial - multi-dose SQ SCH (10:30)
[2019-09-27] MEDS: diltiazem-NS 100mg/100ml 100 ML IV SCH (10:48)
[2019-09-27] MEDS: HYDROcodone/acetaminophen 10/325mg tab PO PRN ×2 (10:49→23:20)
[2019-09-27] MEDS: ipratropium/albuterol 3ml nebule NEB PRN ×2 (10:58→23:37)
[2019-09-27] MEDS ORDERED: CELE-85 PO (16:28)
--- NOTE | 2019-09-27 18:20 | NUR ---
Problems reprioritized. Patient report given, questions answered & plan of care reviewed with LINH Rebollar.
--- NOTE | 2019-09-27 18:25 | NUR ---
Patient in room PCU 3010. I have received report from LINH Trujillo and had the opportunity to ask questions and assume patient care.
[2019-09-27] MEDS ORDERED: furosemide 40mg tablet PO SCH (20:00)
[2019-09-27] MEDS ORDERED: carVEDilol 12.5mg tablet PO SCH (20:00)
[2019-09-27] MEDS ORDERED: budesonide 0.5mg/2ml UD nebule IH SCH ×2 (20:00)
[2019-09-27] MEDS ORDERED: ascorbic acid 500mg tablet PO SCH (20:00)
[2019-09-27] MEDS ORDERED: ferrous sulfate 325mg tablet PO SCH (20:00)
[2019-09-27] MEDS ORDERED: insulin glargine (Lantus) pen - multi-dose SQ SCH (21:00)
[2019-09-27] MEDS ORDERED: gabapentin 300mg capsule PO SCH (21:00)
[2019-09-27] MEDS ORDERED: nystatin 15 GM powder TP SCH (21:00)
--- NOTE | 2019-09-27 21:40 | NUR ---
Patient is in pain and does not want to get up at this time for orthostatic vital signs.
[2019-09-28] VITALS: BP 99/33
[2019-09-28] MEDS: piperacillin/tazo 3.375gm/50ml 50 ML IV SCH (00:19)
[2019-09-28 03:12] VITALS: BP 145/57
[2019-09-28] MEDS ORDERED: VANCOMYCIN LEVEL IV ONE (03:30)
[2019-09-28 03:32] LABS: BASOPHILS # (AUTO) 0.1 X10'3 (0-0.2); BASOPHILS % (AUTO) 0.7 % (0-1); EOSINOPHILS # (AUTO) 0.3 X10'3 (0-0.9); EOSINOPHILS % (AUTO) 3.4 % (0-6); HEMATOCRIT 22.9 % (35.0-45.0); HEMOGLOBIN 7.2 g/dl (12.0-16.0); LYMPHOCYTES # (AUTO) 0.9 X10'3 (1.1-4.8); LYMPHOCYTES % (AUTO) 8.6 % (21-51); MEAN CORPUSCULAR HEMOGLOBIN 27.7 PG (27.0-31.0); MEAN CORPUSCULAR HGB CONC 31.5 g/dL (33.0-36.5); MEAN CORPUSCULAR VOLUME 88.1 FL (78-98); MEAN PLATELET VOLUME 7.8 FL (7.4-10.4); MONOCYTES # (AUTO) 1.2 X10'3 (0-0.9); MONOCYTES % (AUTO) 11.9 % (2-12); NEUTROPHILS # (AUTO) 7.6 X10'3 (1.8-7.7); NEUTROPHILS % (AUTO) 75.4 % (42-75); PLATELET COUNT 127 X10'3 (140-440); RED CELL DISTRIBUTION WIDTH 18.2 % (11.5-14.5); WHITE BLOOD COUNT 10.1 X10'3 (4.5-11.0)
[2019-09-28 03:43] LABS: ALANINE AMINOTRANSFERASE 8 U/L (12-78); ALBUMIN 2.8 G/DL (3.4-5.0); ALBUMIN/GLOBULIN RATIO 0.8 (1.1-1.5); ALKALINE PHOSPHATASE 55 IU/L (46-116); ANION GAP -3 (8-16); ASPARTATE AMINO TRANSFERASE 9 U/L (10-37); BILIRUBIN,TOTAL 0.8 MG/DL (0.1-1.0); BLOOD UREA NITROGEN 26 MG/DL (7-18); BUN/CREATININE RATIO 21.1 (6.6-38.0); CALCIUM 8.8 MG/DL (8.5-10.1); CHLORIDE 105 MMOL/L (99-107); CREATININE 1.23 MG/DL (0.40-0.90); GLUCOSE 190 MG/DL (70-104); MAGNESIUM 1.9 MG/DL (1.5-2.4); PHOSPHORUS 3.3 MG/DL (2.3-4.5); POTASSIUM 4.4 MMOL/L (3.5-5.1); SODIUM 143 MMOL/L (135-145); TOTAL PROTEIN 6.1 G/DL (6.4-8.2); eGFR 42 ML/MIN
[2019-09-28 03:46] LABS: TOTAL CARBON DIOXIDE 41.3 MMOL/L (24-32)
[2019-09-28 03:47] LABS: VANCOMYCIN,TROUGH 22.5 UG/ML (6.0-14.0)
--- NOTE | 2019-09-28 03:53 | NUR ---
sent to [facility] PAGER ID: [phone] MESSAGE: ROOM 3010 Melvi Jacques: Critical C02 of 41.3 from 38.6 Critical Vanco Trough 22.5 Thanks, Keturah [phone]
--- NOTE | 2019-09-28 04:33 | NUR ---
sENT TO ALONSO PAGER ID: [phone] MESSAGE: room 3010 Melvi Jacques: Critical C02 41.3 Please advise thank you Keturah [phone]
--- NOTE | 2019-09-28 05:03 | NUR ---
Ros is aware of patients critical values and would like to pass this information to the dayshift hospitalist.
[2019-09-28 05:14] VITALS: BP 114/37
--- NOTE | 2019-09-28 05:17 | NUR ---
Patient was placed on simple face mask with 6 L for short amount of time and given a breathing tx to bring Spo2 sat from 80% to 92%
--- NOTE | 2019-09-28 05:43 | NUR ---
Sent to [facility] PAGER ID: [phone] MESSAGE: room 3010 Melvi Jacques: Patient desating to 76% placed on non rebreather 15 L Should we get bipap and ABG? Her CO2 is 41.3 Please advise Thanks, Keturah [phone]
[2019-09-28] MEDS: ipratropium/albuterol 3ml nebule NEB PRN (05:47)
--- NOTE | 2019-09-28 05:51 | NUR ---
Patient desating to 75% on 6 liters NC . Patient placed on 15 L non-rebreather mask.
--- NOTE | 2019-09-28 05:57 | NUR ---
Patient given breathing tx, sats up to 94%. NC placed in mouth at 6 L .
--- NOTE | 2019-09-28 06:08 | NUR ---
Problems reprioritized. Patient report given, questions answered & plan of care reviewed with LINH Trujillo.
--- NOTE | 2019-09-28 06:44 | NUR ---
New telephone order from Dr. Sommer, for STAT ABG, if paco2 elevated, order for Bipap PRN. Page sent to Respiratory.
[2019-09-28 07:00] VITALS: BP 104/37
[2019-09-28 07:15] LABS: ABG BASE EXCESS 15.9 mmol/L (-2.0-3.0); ABG HCO3 44.8 mmol/L (22.0-26.0); ABG OXYGEN SATURATION 81.9 % (95-98); ABG PCO2 (T) 92.4 mmHg (35.0-45.0); ABG PH (T) 7.303 (7.350-7.450); ABG PO2 (T) 49.7 mmHg (83-108); ALLEN'S TEST POSITIVE; FLOW 6 L/min; FMetHb 0.2 % (0.3-1.12); FO2Hb 80.9 % (94-100); TOTAL HEMOGLOBIN 8.4 G/dl (12.0-16.0)
[2019-09-28] MEDS ORDERED: lactobacillus acidophilus cap PO SCH (08:00)
[2019-09-28] MEDS ORDERED: losartan 50mg tablet PO SCH (08:00)
[2019-09-28] MEDS ORDERED: celeCOXIB 100mg capsule PO SCH (08:00)
[2019-09-28] MEDS ORDERED: multivitamins, therapeutics tablet PO SCH (08:00)
[2019-09-28] MEDS ORDERED: vitamin D (cholecalciferol) 1,000 unit tablet PO SCH (08:00)
[2019-09-28] MEDS ORDERED: HYDROchlorothiazide 12.5mg capsule PO SCH (08:00)
[2019-09-28] MEDS ORDERED: magnesium hydroxide 30ml (MOM) UD suspension PO SCH (08:00)
[2019-09-28] MEDS ORDERED: sennosides 8.6mg tablet PO SCH (08:00)
[2019-09-28] MEDS ORDERED: meclizine 12.5mg tablet PO SCH (08:00)
[2019-09-28] MEDS ORDERED: pantoprazole 40mg Tablet.DR PO SCH (08:00)
[2019-09-28] MEDS ORDERED: loratadine 10mg tablet PO SCH (08:00)
--- NOTE | 2019-09-28 08:23 | NUR ---
Critical lab: MDRO urine culture. Notified primary LINH Trujillo.
--- NOTE | 2019-09-28 09:00 | NUR ---
PAGER ID: [phone] MESSAGE: sagar [phone] Jacquesolym- Urine cultures came back with MDRO. Currently on Vanco q12 and Zosyn q8. Thanks, Cassandra conley [phone]
[2019-09-28] MEDS ORDERED: VANCOmycin 1250MG/NS 250ml Bag 250 ML IV SCH (10:00)
--- NOTE | 2019-09-28 10:15 | NUR ---
RN IS TO DOCUMENT YES TO ALL APPLICABLE AREAS Pronouncement of : Dr. Renteria 1. Time Physician Notified: Yes, Dr. Taylor present 2. Date of : 09/28/19 3. Time of : 1014 4. DNR/Withdraw life support documented: Limited Code-No Intubation/No Ventilation 5. Monitor strip has been placed on chart: Yes 6. Assessment process is of one-minute duration and includes following criteria: a) Patient is unresponsive to all stimuli: Yes b) Pupils fixed and non-reactive: Yes c) Auscultation of precordium reveals absence of heart tones: Yes d) Auscultation of lungs reveals absence of breath sounds: Yes e) Absence of blood pressure / all vital signs: Yes f) QRS complexes are not present on monitor / EKG strip: Yes g) Pacer spikes without capture: 4. Comments: Ultrasound performed by Dr. Renteria, no cardiac activity noted.
--- NOTE | 2019-09-28 10:35 | NUR ---
Augustine pts laney notified of patients . Per Augustine, pts body to be released to Tramaine Menjivar.
--- NOTE | 2019-09-28 11:30 | NUR ---
Letitia, at [facility] notified of patients . Per Letitia, she will call back with an estimated time of pickup.
--- NOTE | 2019-09-28 13:25 | NUR ---
Blayne Peralta here to grape picker ptMarci
[2019-09-29] MEDS ORDERED: VANCOMYCIN LEVEL IV ONE (21:30)
== END 2019-09-28 15:16 | disposition expired ==
LOC: ER 12:02 → ED HOLD 14:53 → PCU 3S 17:22
PROVIDERS: ADMIT Family Medicine; ATTEND Family Medicine
PROC: 5A12012 Performance of Cardiac Output, Single, Manual (ICD-10-PCS; principal; 2019-09-27)
DX: I13.0 Hypertensive heart and chronic kidney disease with heart failure and stage 1 through stage 4 chronic kidney disease, or unspecified chronic kidney disease (principal); I21.A1 Myocardial infarction type 2; I50.33 Acute on chronic diastolic (congestive) heart failure; I26.09 Other pulmonary embolism with acute cor pulmonale; E66.2 Morbid (severe) obesity with alveolar hypoventilation; L03.115 Cellulitis of right lower limb; L03.116 Cellulitis of left lower limb; L97.909 Non-pressure chronic ulcer of unspecified part of unspecified lower leg with unspecified severity; N17.9 Acute kidney failure, unspecified; N39.0 Urinary tract infection, site not specified; I48.91 Unspecified atrial fibrillation; N18.9 Chronic kidney disease, unspecified; G89.29 Other chronic pain; M19.90 Unspecified osteoarthritis, unspecified site; E10.22 Type 1 diabetes mellitus with diabetic chronic kidney disease; I50.82 Biventricular heart failure; I25.10 Atherosclerotic heart disease of native coronary artery without angina pectoris; I89.0 Lymphedema, not elsewhere classified; K21.9 Gastro-esophageal reflux disease without esophagitis; J44.9 Chronic obstructive pulmonary disease, unspecified; K52.9 Noninfective gastroenteritis and colitis, unspecified; I25.2 Old myocardial infarction; Z79.4 Long term (current) use of insulin; Z87.11 Personal history of peptic ulcer disease; Z80.1 Family history of malignant neoplasm of trachea, bronchus and lung; Z82.49 Family history of ischemic heart disease and other diseases of the circulatory system; Z86.718 Personal history of other venous thrombosis and embolism; Z86.73 Personal history of transient ischemic attack (TIA), and cerebral infarction without residual deficits; Z87.440 Personal history of urinary (tract) infections; Z95.1 Presence of aortocoronary bypass graft; Z95.3 Presence of xenogenic heart valve; Z88.2 Allergy status to sulfonamides; Z88.8 Allergy status to other drugs, medicaments and biological substances; Z88.1 Allergy status to other antibiotic agents; Z91.041 Radiographic dye allergy status; Z90.49 Acquired absence of other specified parts of digestive tract
CPT/HCPCS: 36415; 36600; 71045; 76937; 80053; 80061; 80202; 81001; 82803; 82948; 83036; 83605; 83690; 83735; 83880; 84100; 84439; 84443; 84484; 85018; 85025; 85379; 87040; 87077; 87081; 87088; 87186; 92508; 92616; 92950; 93005; 94640; 94660; 94760; 97112; 97161; 97530; 99285; G0378; J0171; J1815; J1940; J2270; J2543; J3370; J3490; J7030